=== PATIENT | male | born 1960 | race Caucasian/White ===

== ENCOUNTER 2017-03-16 10:14 | Emergency (ER) | payer SELFPAY ==
--- NOTE | 2017-03-16 11:00 | ER Document Report ---
ED Medical Screen (RME) - General Chief Complaint: Chest Pain Stated Complaint: CHEST PAIN Time Seen by Provider: 03/16/17 10:52 Mode of Arrival: Ambulatory Information source: Patient TRAVEL OUTSIDE OF THE [place] IN LAST 30 DAYS: No - HPI Onset: This morning Onset/Duration: Gradual, Constant Quality of pain: Sharp Severity: Mild Associated Symptoms: Hurts to breath Exacerbated by: Denies Relieved by: Denies Notes: 03/16/17 10:57 56-year-old male with previous history of CAD status post stent placement years ago. Patient has had no recent cardiology follow-up. Patient presents with sharp reproducible left-sided chest pain approximately 3 AM this morning which is been constant. He reports painful depressed. No known fevers or chills. No nausea or sweats. Shortness of breath is described as painful deep breathing only. Patient is an active smoker. - Related Data Smoking: Cigarettes Allergies/Adverse Reactions: No Known Allergies Allergy (Verified 03/16/17 10:35) Past Medical History - General Information source: Patient, [facility] Records - Social History Cigarette use (# per day): Yes Frequency of alcohol use: Occasional Drug Abuse: None - Past Medical History Cardiac Medical History: Reports: Hx Coronary Artery Disease, Hx Heart Attack, Hx Hypercholesterolemia, Hx Hypertension Pulmonary Medical History: Reports: Hx Pneumonia Renal/ Medical History: Reports: Hx Kidney Stones - 1983. Denies: Hx Peritoneal Dialysis Psychiatric Medical History: Denies: Hx Depression Past Surgical History: Reports: Hx Cardiac Catheterization - stent x2, Hx Cardiac Surgery - pacemaker, Hx Coronary Stent, Hx Pacemaker - Immunizations Hx Diphtheria, Pertussis, Tetanus Vaccination: Yes Review of Systems - Review of Systems Cardiovascular: Chest pain -: Yes All other systems reviewed and negative Physical Exam - Vital signs Vitals: Temp Pulse Resp BP Pulse Ox 98.4 F 82 16 161/107 H 97 03/16/17 10:35 03/16/17 10:35 03/16/17 10:35 03/16/17 10:35 03/16/17 10:35 Interpretation: Normal - General General appearance: Appears well, Alert - HEENT Head: Normocephalic, Atraumatic Eyes: Normal Pupils: PERRL - Respiratory Respiratory status: No respiratory distress Chest status: Nontender, Pain with deep breathing Breath sounds: Normal Chest palpation: Normal - Cardiovascular Rhythm: Regular Heart sounds: Normal auscultation Murmur: No - Abdominal Inspection: Normal Distension: No distension Bowel sounds: Normal Tenderness: Nontender Organomegaly: No organomegaly - Extremities General upper extremity: Normal inspection, Nontender, Normal color, Normal ROM , Normal temperature General lower extremity: Normal inspection, Nontender, Normal color, Normal ROM , Normal temperature, Normal weight bearing. No: Diana's sign - Neurological Neuro grossly intact: Yes Cognition: Normal Orientation: AAOx4 [place] Coma Scale Eye Opening: Spontaneous [place] Coma Scale Verbal: Oriented [place] Coma Scale Motor: Obeys Commands [place] Coma Scale Total: 15 Speech: Normal Motor strength normal: LUE, RUE, LLE, RLE Sensory: Normal - Skin Skin Temperature: Warm Skin Moisture: Dry Skin Color: Normal Course - Re-evaluation Re-evalutation: 03/16/17 10:59 Patient will require further evaluation management in the back treatment area. Disposition will be per ED provider at that location. - Vital Signs Vital signs: Temp Pulse Resp BP Pulse Ox 98.4 F 82 16 161/107 H 97 03/16/17 10:35 03/16/17 10:35 03/16/17 10:35 03/16/17 10:35 03/16/17 10:35 - EKG Interpretation by Ia EKG shows normal: Sinus rhythm Rate: Normal Rhythm: NSR [place]/QRS: LBBB When compared to previous EKG there are: No significant change Additional EKG results interpreted by ne: 03/16/17 10:59 EKG not significantly changed from previous April 2016
[2017-03-16 11:32] LABS: ABSOLUTE LYMPHOCYTES (AUTO) 1.6 10^3/uL (0.5-4.7); ABSOLUTE MONOCYTES (AUTO) 0.5 10^3/uL (0.1-1.4); ABSOLUTE NEUT (AUTO) 6.3 10^3/uL (1.7-8.2); BASOPHILS % (AUTO) 0.3 % (0-2); HEMATOCRIT 50.5 % (37.9-51.0); HEMOGLOBIN 16.7 g/dL (13.5-17.0); HGB HCT DIFFERENCE -0.4; LYMPHOCYTES % (AUTO) 19.1 % (13-45); MEAN CORPUSCULAR HEMOGLOBIN 32.7 pg (27.0-33.4); MEAN CORPUSCULAR HGB CONC 33.1 g/dL (32.0-36.0); MEAN CORPUSCULAR VOLUME 99 fl (80-97); MONOCYTES % (AUTO) 5.8 % (3-13); RED BLOOD COUNT 5.11 10^6/uL (4.35-5.55); RED CELL DISTRIBUTION WIDTH 13.2 % (11.5-14.0); SEGMENTED NEUTROPHILS % (AUTO) 74.8 % (42-78); WHITE BLOOD COUNT 8.5 10^3/uL (4.0-10.5)
--- NOTE | 2017-03-16 11:37 | RADIOLOGY REPORT (SQ) ---
EXAM DESCRIPTION: CHEST SINGLE VIEW COMPLETED DATE/TIME: 03/16/2017 11:24 am REASON FOR STUDY: cp COMPARISON: April 2016 EXAM PARAMETERS: NUMBER OF VIEWS: One view. TECHNIQUE: Single frontal radiographic view of the chest acquired. RADIATION DOSE: NA LIMITATIONS: None. FINDINGS: LUNGS AND PLEURA: No opacities, masses or pneumothorax. No pleural effusion. MEDIASTINUM AND HILAR STRUCTURES: No masses. Contour normal. HEART AND VASCULAR STRUCTURES: Heart normal in size. Normal vasculature. BONES: No acute findings. HARDWARE: Dual chamber transvenous pacemaker is unchanged in position. OTHER: No other significant finding. IMPRESSION: NO ACUTE RADIOGRAPHIC FINDING IN THE CHEST. TECHNICAL DOCUMENTATION: JOB ID: [id number]
[2017-03-16 11:42] LABS: ALANINE AMINOTRANSFERASE 28 U/L (21-72); ALBUMIN 4.4 g/dL (3.5-5.0); ALKALINE PHOSPHATASE 61 U/L (38-126); ANION GAP 10 (5-19); ASPARTATE AMINO TRANSFERASE 63 U/L (17-59); BILIRUBIN,DIRECT 0.3 mg/dL (0.0-0.4); BILIRUBIN,TOTAL 1.1 mg/dL (0.2-1.3); BLOOD UREA NITROGEN 10 mg/dL (7-20); CALCIUM 9.7 mg/dL (8.4-10.2); CARBON DIOXIDE 25 mmol/L (22-30); CHLORIDE 104 mmol/L (98-107); CREATININE RESULT 0.71 mg/dL (0.52-1.25); GLUCOSE 111 mg/dL (75-110); POTASSIUM 4.2 mmol/L (3.6-5.0); SODIUM 138.9 mmol/L (137-145); TOTAL PROTEIN 7.3 g/dL (6.3-8.2)
[2017-03-16 11:43] LABS: LIPASE 143.7 U/L (23-300); MAGNESIUM 2.2 mg/dL (1.6-2.3)
[2017-03-16 11:44] LABS: ALCOHOL < 10 mg/dL (NONE DETECTED)
[2017-03-16] MEDS ORDERED: NITROGLYCERIN 2% OINTMENT 1 GM PACKET TP ONE (11:54)
[2017-03-16] MEDS ORDERED: ASPIRIN 325 MG TABLET PO ONE (11:56)
[2017-03-16] MEDS ORDERED: CLOPIDOGREL BISULFATE 75 MG TABLET PO ONE (11:57)
[2017-03-16] MEDS ORDERED: ENOXAPARIN SODIUM INJ 80 MG/0.8 ML DISP.SYRIN SUBCUT SCH (12:00)
[2017-03-16] MEDS ORDERED: NORMAL SALINE 1000 ML 1,000 ML IV ONE (12:01)
[2017-03-16] MEDS ORDERED: MORPHINE SULFATE 10 MG/ML INJ IV ONE ×2 (12:03→13:45)
[2017-03-16] MEDS ORDERED: ONDANSETRON HCL INJ/PF 4 MG/2 ML SDV IV ONE (12:03)
[2017-03-16 12:23] LABS: PARTIAL THROMBOPLASTIN TIME 27.4 SEC (23.5-35.8); PROTHROMBIN TIME 12.6 SEC (11.4-15.4)
[2017-03-16] MEDS ORDERED: METOPROLOL TARTRATE 25 MG TABLET PO ONE (12:52)
--- NOTE | 2017-03-16 13:09 | EKG REPORT ---
SEVERITY:- ABNORMAL ECG - SINUS RHYTHM LEFT BUNDLE BRANCH BLOCK : Confirmed by: Kumar Bunn MD 16-Mar-2017 13:08:21
[2017-03-16 13:19] LABS: AMORPHOUS SEDIMENT,URINE TRACE /HPF; APPEARANCE,URINE SLIGHTLY-CLOUDY; BILIRUBIN,URINE NEGATIVE (NEGATIVE); GLUCOSE, URINE NEGATIVE (NEGATIVE); KETONES,URINE NEGATIVE (NEGATIVE); LEUKOCYTE ESTERASE,URINE NEGATIVE (NEGATIVE); NITRITE,URINE NEGATIVE (NEGATIVE); PROTEIN,URINE NEGATIVE (NEGATIVE); URINE SPECIFIC GRAVITY 1.005; UROBILINOGEN,URINE NEGATIVE mg/dL (<2.0)
[2017-03-16 13:24] VITALS: BP 162/107
[2017-03-16] MEDS ORDERED: ONDANSETRON HCL INJ/PF 4 MG/2 ML SDV IV PRN (13:45)
[2017-03-16] MEDS ORDERED: MORPHINE SULFATE 10 MG/ML INJ IV PRN (13:45)
--- NOTE | 2017-03-16 14:06 | ER Document Report ---
ED General - General Chief Complaint: Chest Pain Stated Complaint: CHEST PAIN Time Seen by Provider: 03/16/17 10:52 Mode of Arrival: Ambulatory TRAVEL OUTSIDE OF THE [place] IN LAST 30 DAYS: No - HPI Patient complains to provider of: Chest pain Notes: Patient coming in for evaluation chest pain left sided states that sometimes going to his back states chest pain is sharp in nature ongoing since 3:00 in the morning. Patient states this is been associated with nausea vomiting. Patient has a history of MA 2 in the past with 2 stents placed in a pacemaker. Patient currently does not take any medication and noncompliant with medication regimen. Patient has a history of noncompliance. Patient states stress test here 2 years ago was negative. Patient states last intervention was performed in [place]. Denies any recent travel denies fever chills diarrhea. Denies any trauma to the chest. Patient upon my evaluation resting comfortably no signs of any obvious distress. - Related Data Allergies/Adverse Reactions: No Known Allergies Allergy (Verified 03/16/17 10:35) Past Medical History - General Information source: Patient, [facility] Records - Social History Smoking Status: Current Every Day Smoker Cigarette use (# per day): Yes Frequency of alcohol use: Occasional Drug Abuse: None Family History: Reviewed & Not Pertinent Patient has suicidal ideation: No Patient has homicidal ideation: No - Past Medical History Cardiac Medical History: Reports: Hx Coronary Artery Disease, Hx Heart Attack, Hx Hypercholesterolemia, Hx Hypertension Pulmonary Medical History: Reports: Hx Pneumonia Renal/ Medical History: Reports: Hx Kidney Stones - 1983. Denies: Hx Peritoneal Dialysis Psychiatric Medical History: Denies: Hx Depression Past Surgical History: Reports: Hx Cardiac Catheterization - stent x2, Hx Cardiac Surgery - pacemaker, Hx Coronary Stent, Hx Pacemaker - Immunizations Hx Diphtheria, Pertussis, Tetanus Vaccination: Yes Hx Pneumococcal Vaccination: 06/05/14 Review of Systems - Review of Systems Constitutional: No symptoms reported EENT: No symptoms reported Cardiovascular: Chest pain Respiratory: No symptoms reported Gastrointestinal: No symptoms reported Genitourinary: No symptoms reported Male Genitourinary: No symptoms reported Musculoskeletal: No symptoms reported Skin: No symptoms reported Hematologic/Lymphatic: No symptoms reported Neurological/Psychological: No symptoms reported Physical Exam - Vital signs Vitals: Temp Pulse Resp BP Pulse Ox 98.4 F 82 16 161/107 H 97 03/16/17 10:35 03/16/17 10:35 07/12/17 10:35 03/16/17 10:35 03/16/17 10:35 Interpretation: Normal - General General appearance: Appears well, Alert - HEENT Head: Normocephalic, Atraumatic Eyes: Normal Pupils: PERRL - Respiratory Respiratory status: No respiratory distress Chest status: Nontender Breath sounds: Normal Chest palpation: Normal - Cardiovascular Rhythm: Regular Heart sounds: Normal auscultation Murmur: No - Abdominal Inspection: Normal Distension: No distension Bowel sounds: Normal Tenderness: Nontender Organomegaly: No organomegaly - Back Back: Normal, Nontender - Extremities General upper extremity: Normal inspection, Nontender, Normal color, Normal ROM , Normal temperature General lower extremity: Normal inspection, Nontender, Normal color, Normal ROM , Normal temperature, Normal weight bearing. No: Diana's sign - Neurological Neuro grossly intact: Yes Cognition: Normal Orientation: AAOx4 [place] Coma Scale Eye Opening: Spontaneous [place] Coma Scale Verbal: Oriented [place] Coma Scale Motor: Obeys Commands [place] Coma Scale Total: 15 Speech: Normal Motor strength normal: LUE, RUE, LLE, RLE Sensory: Normal - Psychological Associated symptoms: Normal affect, Normal mood - Skin Skin Temperature: Warm Skin Moisture: Dry Skin Color: Normal Course - Re-evaluation Re-evalutation: 03/16/17 14:04 Patient EKG showed left bundle branch block no signs of thrombosis criteria. EKG similar to previous EKG in the past. No acute changes. Lab work shows elevation troponin 5.7. Patient was given Plavix upon initial evaluation patient states took full aspirin at home 325mg. Upon notification of elevated troponin patient was given a weight-based dose of Lovenox. Patient's chest pain did improve with nitro paste and morphine. Initially rated 5 out of 5 now currently is 2-3 out of 5. Discussion with hospitalist at [facility] Jovanna recommend transfer directly to the Rehabilitation Services Counselor. Patient was given a dose of oral beta-fabio 25 mg metoprolol. Otherwise made n.p.o. patient has IV fluids going at this time. Vital signs do remain stable. - Vital Signs Vital signs: Temp Pulse Resp BP Pulse Ox 98.4 F 82 12 162/107 H 93 03/16/17 10:35 03/16/17 10:35 03/16/17 13:01 03/16/17 13:00 03/16/17 13:01 - Laboratory Result Diagrams: 03/16/17 11:08 03/16/17 11:08 Laboratory results interpreted by me: 03/16/17 03/16/17 11:08 11:08 MCV 99 H Glucose 111 H AST 63 H Critical Care Note - Critical Care Note Total time excluding time spent on procedures (mins): 45 Comments: Multiple evaluations for N STEMI Discharge - Discharge Clinical Impression: Non-compliance, NSTEMI (non-ST elevated myocardial infarction)
[2017-03-16 15:02] LABS: URINE BARBITURATES SCREEN NEGATIVE; URINE METHADONE SCREEN NEGATIVE; URINE OPIATES LOW UNCONFIRMED POSITIVE; URINE PHENCYCLIDINE SCREEN NEGATIVE
== END 2017-03-16 14:17 | disposition short-term general hospital (02) ==
LOC: ER 10:14
DX: I21.4 Non-ST elevation (NSTEMI) myocardial infarction (principal); Z91.14 Patient's other noncompliance with medication regimen; R07.9 Chest pain, unspecified; I44.7 Left bundle-branch block, unspecified; I25.10 Atherosclerotic heart disease of native coronary artery without angina pectoris; I25.2 Old myocardial infarction; I10 Essential (primary) hypertension; F17.210 Nicotine dependence, cigarettes, uncomplicated; Z98.61 Coronary angioplasty status; Z95.0 Presence of cardiac pacemaker
CPT/HCPCS: 93005; 99291; 96372; 96374; 96375; 36415; 80307 ×2; 83690; 83735; 85025; 85610; 85730; 80053; 81001; 84484; 71010; 93010; J2270; J2405; J7030; J1650

== ENCOUNTER 2017-09-04 15:27 | Emergency (ER) | payer SELFPAY ==
[2017-09-04] MEDS ORDERED: IPRATROPIUM/ALBUTEROL 0.5-2.5 MG/3 ML AMPUL NEB ONE (16:32)
[2017-09-04] MEDS ORDERED: TRAMADOL HCL 50 MG TABLET PO ONE (16:32)
--- NOTE | 2017-09-04 16:32 | ER Document Report ---
ED Medical Screen (RME) - General Chief Complaint: Chest Pain > 30 Stated Complaint: CHEST PAIN Time Seen by Provider: 09/04/17 16:22 Notes: This 56-year-old male patient complains of chest pain since 2:00 this morning. Describes the chest pain is being from the left clavicular area going down through the chest and to the left anterior lateral and inferior posterior area. He reports taking several nitroglycerin. He had been drinking alcohol out in the [place] with friends. He also reports diarrhea for the past 1-2 weeks. There is a past history of coronary artery disease with stents. He lives in a block building behind someone's house, so he does have somewhere to stay. He reports smoking one half pack per day and occasional alcohol use. I have greeted and performed a rapid initial assessment of this patient. A comprehensive ED assessment and evaluation of the patient, analysis of test results and completion of the medical decision making process will be conducted by additional ED providers. TRAVEL OUTSIDE OF THE [place] IN LAST 30 DAYS: No - Related Data Allergies/Adverse Reactions: No Known Allergies Allergy (Verified 09/04/17 15:29) Past Medical History - Social History Frequency of alcohol use: 2-3 beers a day Drug Abuse: None - Past Medical History Cardiac Medical History: Reports: Hx Coronary Artery Disease, Hx Heart Attack, Hx Hypercholesterolemia, Hx Hypertension Pulmonary Medical History: Reports: Hx Pneumonia Renal/ Medical History: Reports: Hx Kidney Stones - 1983. Denies: Hx Peritoneal Dialysis Psychiatric Medical History: Denies: Hx Depression Past Surgical History: Reports: Hx Cardiac Catheterization - stent x2, Hx Cardiac Surgery - pacemaker, Hx Coronary Stent, Hx Pacemaker - Immunizations Hx Diphtheria, Pertussis, Tetanus Vaccination: Yes Physical Exam - Vital signs Vitals: Temp Pulse Resp BP Pulse Ox 98.1 F 95 19 121/88 H 96 09/04/17 16:01 09/04/17 16:01 09/04/17 16:01 09/04/17 16:01 09/04/17 16:01 Course - Vital Signs Vital signs: Temp Pulse Resp BP Pulse Ox 98.1 F 95 19 121/88 H 96 09/04/17 16:01 09/04/17 16:01 09/04/17 16:01 09/04/17 16:01 09/04/17 16:01
[2017-09-04 17:27] LABS: ALANINE AMINOTRANSFERASE 26 U/L (21-72); ALBUMIN 4.6 g/dL (3.5-5.0); ALKALINE PHOSPHATASE 77 U/L (38-126); ANION GAP 17 (5-19); ASPARTATE AMINO TRANSFERASE 33 U/L (17-59); BILIRUBIN,DIRECT 0.4 mg/dL (0.0-0.4); BILIRUBIN,TOTAL 0.6 mg/dL (0.2-1.3); BLOOD UREA NITROGEN 7 mg/dL (7-20); CALCIUM 9.5 mg/dL (8.4-10.2); CARBON DIOXIDE 20 mmol/L (22-30); CHLORIDE 111 mmol/L (98-107); CREATINE KINASE 109 U/L (55-170); GLUCOSE 92 mg/dL (75-110); LIPASE 359.9 U/L (23-300); POTASSIUM 4.4 mmol/L (3.6-5.0); SODIUM 148.2 mmol/L (137-145); TOTAL PROTEIN 7.3 g/dL (6.3-8.2)
[2017-09-04 17:36] LABS: ABSOLUTE BASOPHILS # (AUTO) 0.1 10^3/uL (0.0-0.2); ABSOLUTE LYMPHOCYTES (AUTO) 2.4 10^3/uL (0.5-4.7); ABSOLUTE MONOCYTES (AUTO) 0.4 10^3/uL (0.1-1.4); ABSOLUTE NEUT (AUTO) 2.3 10^3/uL (1.7-8.2); BASOPHILS % (AUTO) 1.3 % (0-2); EOSINOPHILS % (AUTO) 0.4 % (0-6); HEMATOCRIT 51.4 % (37.9-51.0); HEMOGLOBIN 17.7 g/dL (13.5-17.0); LYMPHOCYTES % (AUTO) 46.2 % (13-45); MEAN CORPUSCULAR HEMOGLOBIN 33.7 pg (27.0-33.4); MEAN CORPUSCULAR HGB CONC 34.5 g/dL (32.0-36.0); MEAN CORPUSCULAR VOLUME 98 fl (80-97); MONOCYTES % (AUTO) 8.4 % (3-13); PLATELET COUNT 168 10^3/uL (150-450); RED BLOOD COUNT 5.27 10^6/uL (4.35-5.55); RED CELL DISTRIBUTION WIDTH 14.1 % (11.5-14.0); SEGMENTED NEUTROPHILS % (AUTO) 43.7 % (42-78); TOTAL CELLS COUNTED % (AUTO) 100 %; WHITE BLOOD COUNT 5.2 10^3/uL (4.0-10.5)
[2017-09-04 17:37] LABS: ALCOHOL 314 mg/dL (NONE DETECTED)
--- NOTE | 2017-09-04 17:39 | RADIOLOGY REPORT (SQ) ---
EXAM DESCRIPTION: CHEST PA/LAT COMPLETED DATE/TIME: 09/04/2017 5:16 pm REASON FOR STUDY: Congested cough, chest pain COMPARISON: March 2017 EXAM PARAMETERS: NUMBER OF VIEWS: two views TECHNIQUE: Digital Frontal and Lateral radiographic views of the chest acquired. RADIATION DOSE: NA LIMITATIONS: none FINDINGS: LUNGS AND PLEURA: No opacities, masses or pneumothorax. No pleural effusion. MEDIASTINUM AND HILAR STRUCTURES: No masses or contour abnormalities. HEART AND VASCULAR STRUCTURES: Heart normal size. No evidence for failure. BONES: No acute findings. HARDWARE: Pool chamber transvenous pacemaker is unchanged in position OTHER: No other significant finding. IMPRESSION: NO SIGNIFICANT RADIOGRAPHIC FINDING IN THE CHEST. TECHNICAL DOCUMENTATION: JOB ID: [id number] [employer]- All Rights Reserved
[2017-09-04] MEDS ORDERED: MAG HYDROX/AL HYDROX/SIMETH SUSP 30 ML UDCUP PO ONE (19:05)
[2017-09-04] MEDS ORDERED: METOCLOPRAMIDE HCL ORAL SOLN 10 MG/10 ML UDCUP PO ONE (19:05)
[2017-09-04] MEDS ORDERED: LIDOCAINE 2% VISCOUS SOLN 20 ML UDCUP PO ONE (19:05)
[2017-09-04 19:44] LABS: APPEARANCE,URINE CLEAR; BILIRUBIN,URINE NEGATIVE (NEGATIVE); COLOR,URINE YELLOW; GLUCOSE, URINE NEGATIVE (NEGATIVE); KETONES,URINE NEGATIVE (NEGATIVE); LEUKOCYTE ESTERASE,URINE NEGATIVE (NEGATIVE); NITRITE,URINE NEGATIVE (NEGATIVE); PROTEIN,URINE NEGATIVE (NEGATIVE); URINE SPECIFIC GRAVITY 1.006; UROBILINOGEN,URINE NEGATIVE mg/dL (<2.0)
[2017-09-04 19:58] LABS: URINE AMPHETAMINES SCREEN NEGATIVE; URINE BARBITURATES SCREEN NEGATIVE; URINE BENZODIAZEPINES SCREEN NEGATIVE; URINE COCAINE SCREEN NEGATIVE; URINE MARIJUANA (THC) SCREEN NEGATIVE; URINE METHADONE SCREEN NEGATIVE; URINE PHENCYCLIDINE SCREEN NEGATIVE
[2017-09-04 20:02] VITALS: BP 121/80
--- NOTE | 2017-09-04 21:48 | ER Document Report ---
ED General - General Chief Complaint: Chest Pain > 30 Stated Complaint: CHEST PAIN Time Seen by Provider: 09/04/17 16:22 TRAVEL OUTSIDE OF THE [place] IN LAST 30 DAYS: No - HPI Patient complains to provider of: Chest pain Notes: Patient coming in complaining of chest pain sharp stabbing central chest reproduced with movement ongoing since 2 AM. Patient has a history of CAD with recent stent placement in March. Patient states he has been drinking a day only 1 or 2 beers. Patient denies any fevers chills nausea vomiting denies any trauma. Patient denies any relief of the pain with his nitro. Upon my evaluation patient smells of alcohol and is belligerent requesting more medication for pain. - Related Data Allergies/Adverse Reactions: No Known Allergies Allergy (Verified 09/04/17 15:29) Past Medical History - Social History Smoking Status: Current Every Day Smoker Frequency of alcohol use: 2-3 beers a day Drug Abuse: None Family History: Reviewed & Not Pertinent Patient has suicidal ideation: No Patient has homicidal ideation: No - Past Medical History Cardiac Medical History: Reports: Hx Coronary Artery Disease, Hx Heart Attack, Hx Hypercholesterolemia, Hx Hypertension Pulmonary Medical History: Reports: Hx Pneumonia Renal/ Medical History: Reports: Hx Kidney Stones - 1983. Denies: Hx Peritoneal Dialysis Psychiatric Medical History: Denies: Hx Depression Past Surgical History: Reports: Hx Cardiac Catheterization - stent x2, Hx Cardiac Surgery - pacemaker, Hx Coronary Stent, Hx Pacemaker - Immunizations Hx Diphtheria, Pertussis, Tetanus Vaccination: Yes Hx Pneumococcal Vaccination: 06/05/14 Review of Systems - Review of Systems Constitutional: No symptoms reported EENT: No symptoms reported Cardiovascular: Chest pain Respiratory: No symptoms reported Gastrointestinal: No symptoms reported Genitourinary: No symptoms reported Male Genitourinary: No symptoms reported Musculoskeletal: No symptoms reported Skin: No symptoms reported Hematologic/Lymphatic: No symptoms reported Neurological/Psychological: No symptoms reported -: Yes All other systems reviewed and negative Physical Exam - Vital signs Vitals: Temp Pulse Resp BP Pulse Ox 98.1 F 95 19 121/88 H 96 09/04/17 16:01 09/04/17 16:01 09/04/17 16:01 09/04/17 16:01 09/04/17 16:01 Interpretation: Normal - General General appearance: Appears well, Alert - HEENT Head: Normocephalic, Atraumatic Eyes: Normal Pupils: PERRL - Respiratory Respiratory status: No respiratory distress Chest status: Tender - Tenderness palpation of the center of the chest. Reproduces patient's pain. Patient's pain also reproduced when patient is asked to sit up Breath sounds: Normal Chest palpation: Normal - Cardiovascular Rhythm: Regular Heart sounds: Normal auscultation Murmur: No - Abdominal Inspection: Normal Distension: No distension Bowel sounds: Normal Tenderness: Nontender Organomegaly: No organomegaly - Back Back: Normal, Nontender - Extremities General upper extremity: Normal inspection, Nontender, Normal color, Normal ROM , Normal temperature General lower extremity: Normal inspection, Nontender, Normal color, Normal ROM , Normal temperature, Normal weight bearing. No: Diana's sign - Neurological Neuro grossly intact: Yes Cognition: Normal Orientation: AAOx4 [place] Coma Scale Eye Opening: Spontaneous [place] Coma Scale Verbal: Oriented [place] Coma Scale Motor: Obeys Commands [place] Coma Scale Total: 15 Speech: Normal Motor strength normal: LUE, RUE, LLE, RLE Sensory: Normal - Psychological Associated symptoms: Normal affect, Normal mood - Skin Skin Temperature: Warm Skin Moisture: Dry Skin Color: Normal Course - Re-evaluation Re-evalutation: 09/05/17 01:19 Laboratory studies showed acute alcohol intoxication with negative troponin. EKG shows left bundle branch block. No changes in EKG from previous. Patient was observed here for quite some time. . Observation patient sleeping resting easily arousable pain-free at this time. Will discharge patient home patient was encouraged to taper his alcohol ingestion. - Vital Signs Vital signs: Temp Pulse Resp BP Pulse Ox 98.1 F 95 18 121/80 94 09/04/17 16:01 09/04/17 16:01 09/04/17 20:01 09/04/17 20:01 09/04/17 20:01 - Laboratory Result Diagrams: 09/04/17 16:50 09/04/17 16:50 Laboratory results interpreted by me: 09/04/17 09/04/17 09/04/17 16:50 16:50 19:25 Hgb 17.7 H Hct 51.4 H MCV 98 H MCH 33.7 H RDW 14.1 H Lymphocytes % 46.2 H Sodium 148.2 H Chloride 111 H Carbon Dioxide 20 L Lipase 359.9 H Urine Blood SMALL H Serum Alcohol 314 H* Discharge - Discharge Clinical Impression: Chest pain of uncertain etiology Acute alcohol intoxication Qualifiers: Complication of substance-induced condition: uncomplicated Qualified Code(s): F10.929 - Alcohol use, unspecified with intoxication, unspecified Condition: Good Disposition: HOME, SELF-CARE Instructions: Acute Alcohol Intoxication ([facility]), Chest Wall Pain ([facility]), Chest Pain of Unclear Cause ([facility]) Additional Instructions: Your cardiac studies EKG did not did not show any acute changes. I recommend she follow-up with your primary care physician. Take medications as prescribed. Highly recommend to gradually wean your alcohol consumption. Prescriptions: Omeprazole 20 mg PO DAILY #30 capsule.
--- NOTE | 2017-09-06 09:31 | EKG REPORT ---
SEVERITY:- ABNORMAL ECG - SINUS RHYTHM LEFT BUNDLE BRANCH BLOCK : Confirmed by: Heber Isabel 06-Sep-2017 09:29:15
== END 2017-09-04 21:55 | disposition home or self-care (01) ==
LOC: ER 15:27
DX: R07.9 Chest pain, unspecified (principal); I25.10 Atherosclerotic heart disease of native coronary artery without angina pectoris; F17.200 Nicotine dependence, unspecified, uncomplicated; F10.929 Alcohol use, unspecified with intoxication, unspecified
CPT/HCPCS: 93005; 94640; 99285; 36415; 80307 ×2; 82550; 83690; 85025; 80053; 81001; 84484; 71020; 93010; J3490; J7620

== ENCOUNTER 2017-09-10 11:08 | Emergency (ER) | payer SELFPAY ==
[2017-09-10] MEDS ORDERED: ASPIRIN 81 MG TABLET, CHEWABLE PO ONE (11:14)
--- NOTE | 2017-09-10 11:39 | EKG REPORT ---
SEVERITY:- ABNORMAL ECG - SINUS RHYTHM LEFT BUNDLE BRANCH BLOCK : Confirmed by: Heber Isabel 10-Sep-2017 11:39:02
[2017-09-10 11:57] LABS: ABSOLUTE LYMPHOCYTES (AUTO) 1.4 10^3/uL (0.5-4.7); ABSOLUTE MONOCYTES (AUTO) 0.4 10^3/uL (0.1-1.4); ABSOLUTE NEUT (AUTO) 2.8 10^3/uL (1.7-8.2); BASOPHILS % (AUTO) 0.4 % (0-2); EOSINOPHILS % (AUTO) 0.5 % (0-6); HEMATOCRIT 47.2 % (37.9-51.0); HEMOGLOBIN 16.3 g/dL (13.5-17.0); LYMPHOCYTES % (AUTO) 29.8 % (13-45); MEAN CORPUSCULAR HEMOGLOBIN 33.5 pg (27.0-33.4); MEAN CORPUSCULAR HGB CONC 34.5 g/dL (32.0-36.0); MEAN CORPUSCULAR VOLUME 97 fl (80-97); MONOCYTES % (AUTO) 9.6 % (3-13); PLATELET COUNT 155 10^3/uL (150-450); RED BLOOD COUNT 4.86 10^6/uL (4.35-5.55); RED CELL DISTRIBUTION WIDTH 13.7 % (11.5-14.0); SEGMENTED NEUTROPHILS % (AUTO) 59.7 % (42-78); TOTAL CELLS COUNTED % (AUTO) 100 %; WHITE BLOOD COUNT 4.6 10^3/uL (4.0-10.5)
--- NOTE | 2017-09-10 12:05 | RADIOLOGY REPORT (SQ) ---
EXAM DESCRIPTION: CHEST SINGLE VIEW COMPLETED DATE/TIME: 09/10/2017 11:58 am REASON FOR STUDY: chest pain COMPARISON: 09/04/2017 EXAM PARAMETERS: NUMBER OF VIEWS: One view. TECHNIQUE: Single frontal radiographic view of the chest acquired. RADIATION DOSE: NA LIMITATIONS: None. FINDINGS: LUNGS AND PLEURA: No new opacities, masses or pneumothorax. No pleural effusion. MEDIASTINUM AND HILAR STRUCTURES: No masses. Contour normal. HEART AND VASCULAR STRUCTURES: Heart normal in size. Normal vasculature. BONES: No acute findings. HARDWARE: Stable. OTHER: No other significant finding. IMPRESSION: NO ACUTE RADIOGRAPHIC FINDING IN THE CHEST. NO SIGNIFICANT CHANGE FROM PRIOR STUDY. TECHNICAL DOCUMENTATION: JOB ID: [id number] [employer]- All Rights Reserved
[2017-09-10 12:15] LABS: ALANINE AMINOTRANSFERASE 22 U/L (21-72); ALBUMIN 3.7 g/dL (3.5-5.0); ALKALINE PHOSPHATASE 58 U/L (38-126); ANION GAP 9 (5-19); ASPARTATE AMINO TRANSFERASE 20 U/L (17-59); BILIRUBIN,DIRECT 0.1 mg/dL (0.0-0.4); BILIRUBIN,TOTAL 0.7 mg/dL (0.2-1.3); BLOOD UREA NITROGEN 10 mg/dL (7-20); CALCIUM 9.3 mg/dL (8.4-10.2); CARBON DIOXIDE 24 mmol/L (22-30); CHLORIDE 106 mmol/L (98-107); CREATINE KINASE 53 U/L (55-170); GLUCOSE 105 mg/dL (75-110); POTASSIUM 4.3 mmol/L (3.6-5.0); SODIUM 138.5 mmol/L (137-145); TOTAL PROTEIN 6.1 g/dL (6.3-8.2)
[2017-09-10 12:28] LABS: TROPONIN I < 0.012 ng/mL
[2017-09-10] MEDS ORDERED: IBUPROFEN 800 MG TABLET PO ONE (13:17)
--- NOTE | 2017-09-10 13:51 | ER Document Report ---
ED General - General Chief Complaint: Chest Pain Stated Complaint: CHEST PAIN Time Seen by Provider: 09/10/17 11:14 Mode of Arrival: Medic Information source: Patient, Law Enforcement Notes: 56-year-old male who had a stent placed in March presents with complaints of chest pain. Patient notes is a constant chest pressure sensation in the left chest since yesterday. Patient denies any shortness of breath difficulty breathing patient states he has not been taking any of his medications appropriately TRAVEL OUTSIDE OF THE [place] IN LAST 30 DAYS: No - HPI Onset: Yesterday Onset/Duration: Persistent Quality of pain: Pressure Severity: Mild Pain Level: 1 Associated symptoms: Chest pain Exacerbated by: Denies Relieved by: Denies Similar symptoms previously: Yes Recently seen / treated by doctor: Yes - Patient was seen here 1 week prior with similar chest pain - Related Data Allergies/Adverse Reactions: No Known Allergies Allergy (Verified 09/10/17 11:45) Past Medical History - Social History Smoking Status: Current Every Day Smoker Cigarette use (# per day): Yes Chew tobacco use (# tins/day): No Smoking Education Provided: No Frequency of alcohol use: Occasional Drug Abuse: None Family History: Reviewed & Not Pertinent Patient has suicidal ideation: No Patient has homicidal ideation: No - Past Medical History Cardiac Medical History: Reports: Hx Coronary Artery Disease, Hx Heart Attack, Hx Hypercholesterolemia, Hx Hypertension Pulmonary Medical History: Reports: Hx Pneumonia Renal/ Medical History: Reports: Hx Kidney Stones - 1983. Denies: Hx Peritoneal Dialysis Psychiatric Medical History: Denies: Hx Depression Past Surgical History: Reports: Hx Cardiac Catheterization - stent x2, Hx Cardiac Surgery - pacemaker, Hx Coronary Stent, Hx Pacemaker - Immunizations Hx Diphtheria, Pertussis, Tetanus Vaccination: Yes Hx Pneumococcal Vaccination: 06/05/14 Review of Systems - Review of Systems Notes: REVIEW OF SYSTEMS: CONSTITUTIONAL : Denies fever, chills, or sweats. Denies recent illness. EENT: Denies eye, ear, throat, or mouth pain or symptoms. Denies nasal or sinus congestion or discharge. Denies throat, tongue, or mouth swelling or difficulty swallowing. CARDIOVASCULAR: Admits to chest pain RESPIRATORY: Denies cough, cold, or chest congestion. Denies shortness of breath, difficulty breathing, or wheezing. GASTROINTESTINAL: Denies abdominal pain or distention. Denies nausea, vomiting , or diarrhea. Denies blood in vomitus, stools, or per rectum. Denies black, tarry stools. Denies constipation. GENITOURINARY: Denies difficulty urinating, painful urination, burning, frequency, blood in urine, or discharge. MUSCULOSKELETAL: Denies back or neck pain or stiffness. Denies joint pain or swelling. SKIN: Denies rash, lesions or sores. HEMATOLOGIC : Denies easy bruising or bleeding. LYMPHATIC: Denies swollen, enlarged glands. NEUROLOGICAL: Denies confusion or altered mental status. Denies passing out or loss of consciousness. Denies dizziness or lightheadedness. Denies headache. Denies weakness or paralysis or loss of use of either side. Denies problems with gait or speech. Denies sensory loss, numbness, or tingling. Denies seizures. PSYCHIATRIC: Denies anxiety or stress. Denies depression, suicidal ideation, or homicidal ideation. ALL OTHER SYSTEMS REVIEWED AND NEGATIVE. Dictation was performed using [employer] voice recognition software PHYSICAL EXAMINATION: GENERAL: Well-appearing, well-nourished and in no acute distress. HEAD: Atraumatic, normocephalic. EYES: Pupils equal round and reactive to light, extraocular movements intact, sclera anicteric, conjunctiva are normal. ENT: Nares patent, oropharynx clear without exudates. Moist mucous membranes. NECK: Normal range of motion, supple without lymphadenopathy LUNGS: Breath sounds clear to auscultation bilaterally and equal. No wheezes rales or rhonchi. HEART: Regular rate and rhythm without murmurs ABDOMEN: Soft, nontender, nondistended abdomen. No guarding, no rebound. No masses appreciated. Musculoskeletal: Normal range of motion, no pitting or edema. No cyanosis. NEUROLOGICAL: Cranial nerves grossly intact. Normal speech, normal gait. Normal sensory, motor exams PSYCH: Normal mood, normal affect. SKIN: Warm, Dry, normal turgor, no rashes or lesions noted. Physical Exam - Vital signs Vitals: Pulse Ox 94 09/10/17 11:08 Course - Re-evaluation Re-evalutation: 09/10/17 13:48 Patients cardiac enzyme is negative, his presentation is quite benign but he has not been taking his medications as prescribed which I explained to him can lead to cardiac . Patient does not even know what medications he is on 09/10/17 13:51 Donald Mora has been paged so I may speak withthe ciaio counter molder 09/10/17 14:08 Dr Diaz noted single vessel disease , pt was discharged done effiant 10 daily simvastatin 40 daily aspirin 81 mg daily lisinopril 2.5 daily metoprolol 25 daily 09/10/17 16:41 I refilled the patient's medications, given that the cath report noted is a single vessel with a ciaio counter molder and I believe patient is stable for discharge , I will discharge with understand that the patient must take his medications which she has not been doing. Not taking his medications put him at extremely high risk for life-threatening issues After performing a Medical Screening Examination, I estimate there is LOW risk for RUPTURED ESOPHAGUS, PNEUMOTHORAX, PULMONARY EMBOLISM, ACUTE CORONARY SYNDROME, OR THORACIC AORTIC DISSECTION, thus I consider the discharge disposition reasonable. I have reevaluated this patient multiple times and no significant life threatening changes are noted. The patient and I have discussed the diagnosis and risks, and we agree with discharging home with close follow-up. We also discussed returning to the Emergency Department immediately if new or worsening symptoms occur. We have discussed the symptoms which are most concerning (e.g., bloody sputum, worsening pain or shortness of breath) that necessitate immediate return. - Vital Signs Vital signs: Temp Pulse Resp BP Pulse Ox 98.7 F 16 134/91 H 95 09/10/17 11:18 09/10/17 14:01 09/10/17 14:01 09/10/17 14:01 - Laboratory Result Diagrams: 09/10/17 11:34 09/10/17 11:34 Laboratory results interpreted by me: 09/10/17 09/10/17 11:34 11:34 MCH 33.5 H Creatine Kinase 53 L Total Protein 6.1 L - Diagnostic Test Radiology reviewed: Image reviewed, Reports reviewed - EKG Interpretation by Al EKG shows normal: Sinus rhythm, Felda, Intervals, QRS Complexes Felda/QRS: LBBB Discharge - Discharge Clinical Impression: Noncompliance with medication regimen Chest pain Qualifiers: Chest pain type: unspecified Qualified Code(s): R07.9 - Chest pain, unspecified CAD (coronary artery disease) Qualifiers: Coronary Disease-Associated Artery/Lesion type: [place] artery [place] vs. transplanted heart: [place] heart Associated angina: without angina Qualified Code(s): I25.10 - Atherosclerotic heart disease of [place] coronary artery without angina pectoris Condition: Stable Disposition: HOME, SELF-CARE Instructions: Chest Pain of Unclear Cause ([facility]) Additional Instructions: You must take your medications as prescribed, return immediately if there are any other concerns Prescriptions: Aspirin [Aspirin 81 mg Chewable Tablet] 81 mg PO DAILY #30 tab Lisinopril [Prinivil 2.5 mg Tablet] 2.5 mg PO DAILY #30 tablet Metoprolol Tartrate [Lopressor 25 mg Tablet] 25 mg PO DAILY #30 tab Prasugrel HCl [Effient 10 mg Tablet] 10 mg PO DAILY #30 tablet Simvastatin 40 mg PO DAILY #30 tablet
[2017-09-10 14:42] VITALS: BP 134/91
== END 2017-09-10 14:50 | disposition home or self-care (01) ==
LOC: ER 11:08
DX: R07.89 Other chest pain (principal); I25.10 Atherosclerotic heart disease of native coronary artery without angina pectoris; I10 Essential (primary) hypertension; Z95.0 Presence of cardiac pacemaker; T45.526A Underdosing of antithrombotic drugs, initial encounter; T46.6X6A Underdosing of antihyperlipidemic and antiarteriosclerotic drugs, initial encounter; T39.016A Underdosing of aspirin, initial encounter; T46.4X6A Underdosing of angiotensin-converting-enzyme inhibitors, initial encounter; T44.7X6A Underdosing of beta-adrenoreceptor antagonists, initial encounter; Z91.128 Patient's intentional underdosing of medication regimen for other reason; Z91.14 Patient's other noncompliance with medication regimen; Z95.5 Presence of coronary angioplasty implant and graft; I25.2 Old myocardial infarction
CPT/HCPCS: 36415; 71045; 80053; 82550; 82553; 84484; 85025; 93005; 93010; 99285

== ENCOUNTER 2018-12-27 12:28 | Observation (INO) | payer MEDICAID ==
[2018-12-27 12:59] LABS: ABSOLUTE LYMPHOCYTES (AUTO) 1.8 10^3/uL (0.5-4.7); ABSOLUTE MONOCYTES (AUTO) 0.4 10^3/uL (0.1-1.4); ABSOLUTE NEUT (AUTO) 3.7 10^3/uL (1.7-8.2); BASOPHILS % (AUTO) 0.5 % (0-2); EOSINOPHILS % (AUTO) 0.8 % (0-6); HEMATOCRIT 45.5 % (37.9-51.0); HEMOGLOBIN 15.8 g/dL (13.5-17.0); LYMPHOCYTES % (AUTO) 30.3 % (13-45); MEAN CORPUSCULAR HEMOGLOBIN 32.9 pg (27.0-33.4); MEAN CORPUSCULAR HGB CONC 34.7 g/dL (32.0-36.0); MEAN CORPUSCULAR VOLUME 95 fl (80-97); PLATELET COUNT 202 10^3/uL (150-450); RED CELL DISTRIBUTION WIDTH 13.3 % (11.5-14.0); SEGMENTED NEUTROPHILS % (AUTO) 61.4 % (42-78); TOTAL CELLS COUNTED % (AUTO) 100 %
--- NOTE | 2018-12-27 13:25 | RADIOLOGY REPORT (SQ) ---
EXAM DESCRIPTION: CHEST SINGLE VIEW COMPLETED DATE/TIME: 12/27/2018 1:01 pm REASON FOR STUDY: BED 9 CP COMPARISON: None. NUMBER OF VIEWS: One view. TECHNIQUE: Single frontal radiographic view of the chest acquired. LIMITATIONS: None. FINDINGS: LUNGS AND PLEURA: No opacities, masses or pneumothorax. No pleural effusion. MEDIASTINUM AND HILAR STRUCTURES: No masses. No contour abnormality. HEART AND VASCULAR STRUCTURES: Heart size normal. Vascularity normal. HARDWARE: Hardware/support devices in their appropriate and expected location. BONES: No acute findings. OTHER: No other significant finding. IMPRESSION: NO ACUTE RADIOGRAPHIC FINDING IN THE CHEST. HARDWARE/SUPPORT DEVICE(S) IN APPROPRIATE AND EXPECTED LOCATION. TECHNICAL DOCUMENTATION: JOB ID: [id number] [employer]- All Rights Reserved Reading location - IP/workstation name: [email or web address]
[2018-12-27 13:28] LABS: ALANINE AMINOTRANSFERASE 27 U/L (21-72); ALBUMIN 3.5 g/dL (3.5-5.0); ALKALINE PHOSPHATASE 43 U/L (38-126); ANION GAP 5 (5-19); ASPARTATE AMINO TRANSFERASE 21 U/L (17-59); BILIRUBIN,DIRECT 0.2 mg/dL (0.0-0.4); BILIRUBIN,TOTAL 0.6 mg/dL (0.2-1.3); BLOOD UREA NITROGEN 15 mg/dL (7-20); CALCIUM 9.1 mg/dL (8.4-10.2); CARBON DIOXIDE 23 mmol/L (22-30); CHLORIDE 111 mmol/L (98-107); CREATINE KINASE 73 U/L (55-170); GLUCOSE 85 mg/dL (75-110); SODIUM 139.2 mmol/L (137-145); TOTAL PROTEIN 6.1 g/dL (6.3-8.2)
[2018-12-27 13:31] LABS: CREATINE KINASE MB 0.36 ng/mL (<4.55)
[2018-12-27 13:41] LABS: TROPONIN I < 0.012 ng/mL
--- NOTE | 2018-12-27 14:32 | ER Document Report ---
ED Cardiac - General Chief Complaint: Chest Pain Stated Complaint: CHEST PAIN Time Seen by Provider: 12/27/18 13:35 Information source: Patient Notes: Patient is a 58-year-old male with past medical history as recorded including 4 stents with the last placed in May at [facility] who is noncompliant with his Plavix who presents today with a 1 to 2 days of some right-sided nonradiating chest pain. He states he had an unwitnessed syncopal episode last evening. Patient states yesterday he had some mild shortness of breath but has a history of COPD. He denies any runny nose, congestion, cough, calf pain or leg swelling, recent trips or travel. He went to his primary care physician today who sent the patient here for further evaluation and treatment. Patient does have a pacemaker at baseline. Patient denies any chest pain at this time. He was provided aspirin by EMS. TRAVEL OUTSIDE OF THE [place] IN LAST 30 DAYS: No - Related Data Allergies/Adverse Reactions: No Known Allergies Allergy (Verified 09/10/17 11:45) Past Medical History - Social History Smoking Status: Current Every Day Smoker Family History: Reviewed & Not Pertinent Patient has suicidal ideation: No Patient has homicidal ideation: No - Past Medical History Cardiac Medical History: Reports: Hx Coronary Artery Disease, Hx Heart Attack, Hx Hypercholesterolemia, Hx Hypertension Pulmonary Medical History: Reports: Hx COPD, Hx Pneumonia Renal/ Medical History: Reports: Hx Kidney Stones - 1983. Denies: Hx Peritoneal Dialysis Psychiatric Medical History: Denies: Hx Depression Past Surgical History: Reports: Hx Cardiac Catheterization - stent x2, Hx Cardiac Surgery - pacemaker, Hx Coronary Stent, Hx Pacemaker - Immunizations Hx Diphtheria, Pertussis, Tetanus Vaccination: Yes Hx Pneumococcal Vaccination: 06/05/14 Review of Systems - Review of Systems Constitutional: denies: Fever EENT: denies: Eye discharge, Nose discharge Cardiovascular: Syncope. denies: Palpitations Respiratory: Short of breath. denies: Hurts to breathe, Hemoptysis Gastrointestinal: denies: Vomiting Genitourinary: denies: Dysuria Musculoskeletal: denies: Leg swelling Skin: Other - no hives. denies: Rash Neurological/Psychological: Other - no slurred speech -: Yes All other systems reviewed and negative Physical Exam - Vital signs Vitals: Resp Pulse Ox 21 H 94 12/27/18 12:36 12/27/18 12:36 Notes: Reviewed vital signs and nursing note as charted by RN. CONSTITUTIONAL: Alert and oriented and responds appropriately to questions. Well-appearing; well-nourished HEAD: Normocephalic; atraumatic CARD: Regular rate and rhythm; no murmurs; symmetric distal pulses RESP: Normal chest excursion without splinting or tachypnea; pacemaker palpated in the left lateral chest wall; breath sounds clear and equal bilaterally; no wheezes, no rhonchi, no rales ABD/GI: Normal bowel sounds; non-distended; soft, non-tender; no palpable organomegaly or masses BACK: The back appears normal and is non-tender to palpation EXT: Normal ROM in all joints; non-tender to palpation; no edema SKIN: No acute lesions noted NEURO: CN 2-12 intact; 5/5 bilateral upper and lower extremity strength with sensation intact to light touch PSYCH: The patient's mood and manner are appropriate. Grooming and personal hygiene are appropriate. Course - Re-evaluation Re-evalutation: Given the history and physical examination we will order a cardiac panel, x-ray of the chest, and place the patient on the monitor. Given the syncopal episode I will obtain a CTA of the chest. EKG showed heart rate of 72, AV dual paced rhythm. No obvious concordance present. 12/27/18 14:31 Labs as recorded. Imaging as recorded thus far. Patient is currently pain- free. Vital signs are stable. 12/27/18 16:08 Repeat EKG as recorded. Heart rate 76, AV dual pacer with no obvious acute changes. Second troponin as recorded. CTA reading as recorded. 12/27/18 16:36 Repeat troponin as recorded. CT of the chest as recorded. Patient will be admitted to the hospitalist service for further evaluation and possibly provocative testing. - Vital Signs Vital signs: Temp Pulse Resp BP Pulse Ox 18 134/96 H 96 12/27/18 16:01 12/27/18 16:01 12/27/18 16:01 - Laboratory Result Diagrams: 12/27/18 12:44 12/27/18 12:44 Laboratory results interpreted by me: 12/27/18 12:44 Chloride 111 H Total Protein 6.1 L Discharge - Discharge Clinical Impression: Syncope and collapse Chest pain Qualifiers: Chest pain type: unspecified Qualified Code(s): R07.9 - Chest pain, unspecified Condition: Fair Disposition: ADMITTED OBSERVATION Admitting Provider: Yasmin (Hospitalist) Unit Admitted: Telemetry
[2018-12-27] MEDS ORDERED: ACETAMINOPHEN 325 MG TABLET PO ONE (15:39)
[2018-12-27] MEDS ORDERED: NITROGLYCERIN 2% OINTMENT 1 GM PACKET TP ONE (15:47)
[2018-12-27] MEDS: NITROGLYCERIN 0.4 MG/TAB 25 TAB/BOTTLE SL PRN ×2 (16:02→16:19)
--- NOTE | 2018-12-27 16:18 | RADIOLOGY REPORT (SQ) ---
EXAM DESCRIPTION: CTA CHEST COMPLETED DATE/TIME: 12/27/2018 3:13 pm REASON FOR STUDY: 9; CP/syncope COMPARISON: CT angio chest 07/10/2016, 11/10/2014, 04/14/2010 TECHNIQUE: CT scan of the chest performed using helical scanning technique with dynamic intravenous contrast injection. Images reviewed with lung, soft tissue and bone windows. Reconstructed coronal and sagittal MPR images reviewed. Additional 3 dimensional post-processing performed to develop Maximal Intensity Projection images (CA P). All images stored on PACS. All CT scanners at this facility use dose modulation, iterative reconstruction, and/or weight based d osing when appropriate to reduce radiation dose to as low as reasonably achievable (ALARA). [facility]: Dose Right [facility]: CareDose [facility]: Dose Right [facility]: Teradose 4D [facility]: Flagr CONTRAST TYPE AND DOSE: contrast/concentration: Isovue 350.00 mg/ml; Total Contrast Delivered: 74.0 ml; Total Saline Delivered: 90.0 ml Contrast bolus optimized for the pulmonary arteries. Not diagnostic for the aorta. RENAL FUNCTION: Creatinine 0.6 RADIATION DOSE: CT Rad equipment meets quality standard of care and radiation dose reduction techniq ues were employed. CTDIvol: 19.8 - 22.0 mGy. DLP: 902 mGy-cm. . LIMITATIONS: None. FINDINGS: LUNGS AND PLEURA: No acute infiltrates. No pleural effusion. No pneumothorax. In the right lateral lung base, an 8 mm nodule is present which is larger than on previous exams dati ng back to 2009. Continued follow-up as per Fleischner criteria with non contrasted CT is recommende d. AORTA AND GREAT VESSELS: No aneurysm. Contrast bolus not optimized for the aorta. HEART: No pericardial effusion. Significant coronary artery calcifications are present PULMONARY ARTERIES: No emboli visualized in the main pulmonary arteries or the segmental branches. HILAR AND MEDIASTINAL STRUCTURES: No identified masses or abnormal nodes. HARDWARE: None in the chest. UPPER ABDOMEN: No significant findings. Limited exam. THYROID AND OTHER SOFT TISSUES: No masses. No adenopathy. BONES: No acute or significant finding. 3D MIPS: Confirm above findings. OTHER: No other significant finding. IMPRESSION: No CT angio evidence of acute pulmonary emboli. 8 mm nodule in the right lateral lung base, larger than on previous studies dating back to 2009. Con tinued periodic CT surveillance is recommended COMMENT: FLEISCHNER CRITERIA FOR FOLLOW-UP OF PULMONARY NODULES Incidentally detected new nodules in persons 35 or older. HIGH RISK: History of smoking or other known risk factors. 6-8mm single solid nodule: LOW RISK: CT 6-12 mo; then consider CT 18-24 mo. HIGH RISK: CT 6-12 mo; th en CT 18-24 mo. Quality ID # [id number]: Final reports with documentation of one or more dose reduction techniques (e.g., Au tomated exposure control, adjustment of the mA and/or kV according to patient size, use of iterative reconstruction technique) TECHNICAL DOCUMENTATION: JOB ID: [id number] [employer]- All Rights Reserved Reading location - IP/workstation name: [email or web address]
[2018-12-27] MEDS ORDERED: MORPHINE SULFATE 10 MG/ML INJ IV ONE (16:46)
[2018-12-27] MEDS ORDERED: NITROGLYCERIN 0.4 MG/TAB 25 TAB/BOTTLE SL PRN (18:08)
--- NOTE | 2018-12-27 18:10 | PDOC H&P ---
History of Present Illness Admission Date/PCP: 12/27/18 17:12 Patient complains of: chest pain History of Present Illness: LORETTA OLMEDO is a 58 year old male of HTN, asthma, CAD, prior MN, multiple stenting x 4 (2006, 2008 and recent one n May 2018 for MN) who presented with chest pain. He says this started yesterdat around 1 pm while walking in the and, midsternal radiating to the right chest, stabbing in character, alternating between 3-6/10 in intensity. He says he was supposed to be on both aspirin and Effient but has not been compliant with Effient as he could not afford it. Past Medical History Cardiac Medical History: Reports: Coronary Artery Disease, Myocardial Infarction, Hyperlipidema, Hypertension Pulmonary Medical History: Reports: Chronic Obstructive Pulmonary Disease (C OPD), Pneumonia Psychiatric Medical History: Denies: Depression Past Surgical History Past Surgical History: Reports: Cardiac Catheterization - stent x2, Coronary Stent, Pacemaker Social History Smoking Status: Current Every Day Smoker Frequency of Alcohol Use: Occasional Hx Recreational Drug Use: No Hx Prescription Drug Abuse: No Family History Family History: Reviewed & Not Pertinent Parental Family History Reviewed: Yes - no premature CAD Children Family History Reviewed: No Sibling(s) Family History Reviewed.: No Medication/Allergy Home Medications: Albuterol Sulfate [Proair HFA Inhalation Aerosol 8.5 gm MDI] 2 puff IH Q4HP PRN 12/28/18 Aspirin [Adult Low Dose Aspirin EC] 81 mg PO DAILY 12/28/18 Atorvastatin Calcium [Lipitor 40 mg Tablet] 40 mg PO QHS 12/28/18 Lisinopril [Zestril] 2.5 mg PO DAILY 12/28/18 Metoprolol Tartrate [Lopressor 25 mg Tablet] 25 mg PO Q12 12/28/18 Nitroglycerin [Nitrostat 0.4 mg (1/150 Gr) Tabs 25/Bottle] 0.4 mg SL Q5MP PRN 12/28/18 Triamcinolone Acetonide [Aristocort 0.1% Cream] 1 applic TOP DAILY MDD *APPLY TO UPPER RIGHT ARM* 12/28/18 Allergies/Adverse Reactions: No Known Allergies Allergy (Verified 09/10/17 11:45) Review of Systems All systems: reviewed and no additional remarkable complaints except as stated - as mentioned in HPI Physical Exam Vital Signs: Temp Pulse Resp BP Pulse Ox 16 106/69 94 12/27/18 16:30 12/27/18 16:31 12/27/18 16:31 Intake & Output 12/26/18 12/27/18 12/28/18 06:59 06:59 06:59 Weight 211 lb 13.828 oz General appearance: PRESENT: no acute distress, well-developed, well-nourished Head exam: PRESENT: atraumatic, normocephalic Eye exam: PRESENT: conjunctiva pink, EOMI, PERRLA. ABSENT: scleral icterus Ear exam: PRESENT: normal external ear exam Mouth exam: PRESENT: moist, tongue midline Neck exam: ABSENT: carotid bruit, JVD, lymphadenopathy, thyromegaly Respiratory exam: PRESENT: clear to auscultation chente. ABSENT: rales, rhonchi, wheezes Cardiovascular exam: PRESENT: RRR. ABSENT: diastolic murmur, rubs, systolic murmur Pulses: PRESENT: normal dorsalis pedis pul GI/Abdominal exam: PRESENT: normal bowel sounds, soft. ABSENT: distended, guarding, mass, organolmegaly, rebound, tenderness Rectal exam: PRESENT: deferred Neurological exam: PRESENT: alert, awake, oriented to person, oriented to place, oriented to time, oriented to situation, CN II-XII grossly intact. ABSENT: m otor sensory deficit Results Laboratory Results: 12/27/18 12:44 12/27/18 12:44 12/27/18 12/27/18 12:44 12:44 WBC 6.0 RBC 4.80 Hgb 15.8 Hct 45.5 MCV 95 MCH 32.9 MCHC 34.7 RDW 13.3 Plt Count 202 Seg Neutrophils % 61.4 Lymphocytes % 30.3 Monocytes % 7.0 Eosinophils % 0.8 Basophils % 0.5 Absolute Neutrophils 3.7 Absolute Lymphocytes 1.8 Absolute Monocytes 0.4 Absolute Eosinophils 0.0 Absolute Basophils 0.0 Sodium 139.2 Potassium 4.0 Chloride 111 H Carbon Dioxide 23 Anion Gap 5 BUN 15 Creatinine 0.62 Est GFR ( Amer) > 60 Est GFR (Non-Af Amer) > 60 Glucose 85 Calcium 9.1 Total Bilirubin 0.6 AST 21 ALT 27 Alkaline Phosphatase 43 Total Protein 6.1 L Albumin 3.5 12/27/18 12/27/1812/27/19 12:44 12:44 15:44 Creatine Kinase 73 CK-MB (CK-2) 0.36 Troponin I < 0.012 < 0.012 Impressions: Chest X-Ray 12/27/18 12:31 IMPRESSION: NO ACUTE RADIOGRAPHIC FINDING IN THE CHEST. HARDWARE/SUPPORT DEVICE(S) IN APPROPRIATE AND EXPECTED LOCATION. Chest/Abdomen CTA 12/27/18 13:35 IMPRESSION: No CT angio evidence of acute pulmonary emboli. 8 mm nodule in the right lateral lung base, larger than on previous studies dating back to 2009. Continued periodic CT surveillance is recommended Assessment and Plan - Diagnosis (1) Chest pain Qualifiers: Chest pain type: unspecified Qualified Code(s): R07.9 - Chest pain, unspecified Is this a current diagnosis for this admission?: Yes Plan: Troponins and EKGs have been negative so far. He does have high risk for coronary event wit multiple stenting and and not compliant with medications. Will cotinue to cycle trops and EKGs and possible stress testing tomorrow.
--- NOTE | 2018-12-27 18:32 | EKG REPORT ---
SEVERITY:- ABNORMAL ECG - ATRIAL-VENTRICULAR DUAL-PACED COMPLEXES NONSPECIFIC IVCD WITH LAD : Confirmed by: Kumar Bunn MD 27-Dec-2018 18:32:32
--- NOTE | 2018-12-27 18:33 | EKG REPORT ---
SEVERITY:- ABNORMAL ECG - A-V DUAL-PACED COMPLEXES W/ SOME INHIBITION : Confirmed by: Kumar Bunn MD 27-Dec-2018 18:33:26
--- NOTE | 2018-12-27 19:55 | RADIOLOGY REPORT (SQ) ---
EXAM DESCRIPTION: U/S ABDOMEN COMPLETE W/O DOP COMPLETED DATE/TIME: 12/27/2018 6:52 pm REASON FOR STUDY: RUQ, epig pain COMPARISON: None. TECHNIQUE: Dynamic and static grayscale images acquired of the abdomen and recorded on PACS. Additio nal selected color Doppler and spectral images recorded. Note: Study does not meet criteria for complete doppler/duplex scan LIMITATIONS: None. FINDINGS: PANCREAS: No masses. Visualized pancreatic duct normal caliber. LIVER: No masses. Echotexture normal. LIVER VASCULATURE: Normal directional flow of the main portal vein and hepatic veins. GALLBLADDER: No stones. Normal wall thickness. No pericholecystic fluid. ULTRASOUND-DETECTED HUIZAR'S SIGN: Negative. INTRAHEPATIC DUCTS AND COMMON DUCT: CBD and intrahepatic ducts normal caliber. No filling defects. INFERIOR VENA CAVA: Normal flow. AORTA: No aneurysm. RIGHT KIDNEY:Normal size. Normal echogenicity. No solid or suspicious masses. No hydronephrosis. No c alcifications. LEFT KIDNEY: Normal size. Normal echogenicity. No solid or suspicious masses. No hydronephrosis. No calcifications. SPLEEN: Normal size. No solid masses. PERITONEAL AND PLEURAL SPACES: No ascites or effusions. OTHER: No other significant finding. IMPRESSION: Age-appropriate exam. No acute findings. TECHNICAL DOCUMENTATION: JOB ID: [id number] 2010 [employer]- All Rights Reserved Reading location - IP/workstation name: [employer]
[2018-12-27] MEDS: MORPHINE SULFATE 10 MG/ML INJ IV PRN (20:54)
[2018-12-27] MEDS ORDERED: ATORVASTATIN CALCIUM 40 MG TABLET PO SCH (22:00)
[2018-12-28] MEDS: MORPHINE SULFATE 10 MG/ML INJ IV PRN ×2 (00:50→13:25)
[2018-12-28 05:08] VITALS: BP 134/85
[2018-12-28] MEDS ORDERED: FONDAPARINUX SODIUM INJ 2.5 MG/0.5 ML DISP.SYRIN SUBCUT SCH (08:00)
--- NOTE | 2018-12-28 08:49 | EKG REPORT ---
SEVERITY:- ABNORMAL ECG - ATRIAL-VENTRICULAR DUAL-PACED RHYTHM : Confirmed by: Kumar Bunn MD 28-Dec-2018 08:48:06
[2018-12-28] MEDS ORDERED: ASPIRIN 81 MG TABLET, CHEWABLE PO SCH (10:00)
[2018-12-28] MEDS ORDERED: REGADENOSON INJ 0.4 MG/5 ML DISP.SYRIN IV ONE (11:57)
--- NOTE | 2018-12-28 18:00 | PDOC DISCHARGE SUMMARY ---
General - Admit/Disc Date/PCP Admission Date/Primary Care Provider: 12/27/18 17:12 Discharge Date: 12/28/18 - Discharge Diagnosis (1) Chest pain Is this a current diagnosis for this admission?: Yes (2) CAD (coronary artery disease) Is this a current diagnosis for this admission?: Yes - Additional Information Resuscitation Status: Full Code Prescriptions: Aspirin [Adult Low Dose Aspirin EC] 81 mg PO DAILY #60 tablet. Atorvastatin Calcium [Lipitor 40 mg Tablet] 40 mg PO QHS #30 tablet Clopidogrel Bisulfate [Plavix] 75 mg PO DAILY #60 tablet Gabapentin [Neurontin 100 mg Capsule] 100 mg PO Q8H PRN #30 capsule PRN Reason: Lisinopril [Prinivil 5 mg Tablet] 5 mg PO DAILY #30 tablet Metoprolol Tartrate [Lopressor 25 mg Tablet] 25 mg PO Q12 #60 tablet Pantoprazole Sodium [Protonix [address] Packet] 40 mg PO DAILY #30 granpkt. Home Medications: Albuterol Sulfate [Proair HFA Inhalation Aerosol 8.5 gm MDI] 2 puff IH Q4HP PRN 12/28/18 Aspirin [Adult Low Dose Aspirin EC] 81 mg PO DAILY #60 tablet. 12/28/18 Atorvastatin Calcium [Lipitor 40 mg Tablet] 40 mg PO QHS #30 tablet 12/28/18 Clopidogrel Bisulfate [Plavix] 75 mg PO DAILY #60 tablet 12/28/18 Gabapentin [Neurontin 100 mg Capsule] 100 mg PO Q8H PRN #30 capsule 12/28/18 Lisinopril [Prinivil 5 mg Tablet] 5 mg PO DAILY #30 tablet 12/28/18 Metoprolol Tartrate [Lopressor 25 mg Tablet] 25 mg PO Q12 #60 tablet 12/28/18 Nitroglycerin [Nitrostat 0.4 mg (1/150 Gr) Tabs 25/Bottle] 0.4 mg SL Q5MP PRN 12/28/18 Pantoprazole Sodium [Protonix [address] Packet] 40 mg PO DAILY #30 granpkt. 12/28/18 Triamcinolone Acetonide [Aristocort 0.1% Cream] 1 applic TOP DAILY MDD *APPLY TO UPPER RIGHT ARM* 12/28/18 History of Present Illness History of Present Illness: LORETTA Diane OLMEDO is a 58 year old male of HTN, asthma, CAD, prior CT, multiple stenting x 4 (2006, 2008 and recent one n [address]) who presented with chest pain. He says this started yesterdat around 1 pm while walking in the and, midsternal radiating to the right chest, stabbing in character, alternating between 3-6/10 in intensity. He says he was supposed to be on both aspirin and Effient but has not been compliant with Effient as he could not afford it. Hospital Course Hospital Course: LORETTA OLMEDO is a 58 year old male of HTN, asthma, CAD, prior CT, multiple stenting x 4 (2006, 2008 and recent one on RCA in [address]) who was admitted with chest pain. CTA chest ruled out PE but did show significant coronary calcifications. Troponins were unremarkable with no cute changes on EKG. He underwent stress testing. Discussed results with cardiology, no reversible defects. His CAD meds will be optimized. Plavix will be added instead if his previously prescribed Effient. He has been chest pain free. He will follow up with Dr. Perez, out patient. Physical Exam Vital Signs: Temp Pulse Resp BP Pulse Ox 97.7 F 64 18 134/85 H 96 12/28/18 05:07 12/28/18 14:00 12/28/18 05:07 12/28/18 05:07 12/28/18 05:07 Intake & Output 12/27/18 12/28/18 12/29/18 06:59 06:59 06:59 Intake Total 500 Output Total 900 Balance -400 Weight 211 lb 13.828 oz General appearance: PRESENT: no acute distress, well-developed, well-nourished Head exam: PRESENT: atraumatic, normocephalic Eye exam: PRESENT: conjunctiva pink, EOMI, PERRLA. ABSENT: scleral icterus Ear exam: PRESENT: normal external ear exam Mouth exam: PRESENT: moist, tongue midline Neck exam: ABSENT: carotid bruit, JVD, lymphadenopathy, thyromegaly Respiratory exam: PRESENT: clear to auscultation chente. ABSENT: rales, rhonchi, wheezes Cardiovascular exam: PRESENT: RRR. ABSENT: diastolic murmur, rubs, systolic murmur Pulses: PRESENT: normal dorsalis pedis pul GI/Abdominal exam: PRESENT: normal bowel sounds, soft. ABSENT: distended, guarding, mass, organolmegaly, rebound, tenderness Rectal exam: PRESENT: deferred Extremities exam: PRESENT: full ROM. ABSENT: calf tenderness, clubbing, pedal edema Neurological exam: PRESENT: alert, awake, oriented to person, oriented to place, oriented to time, oriented to situation, CN II-XII grossly intact. ABSENT: motor sensory deficit Results Laboratory Results: 12/27/18 12:44 12/27/18 12:44 12/27/18 12/27/18 12/27/18 12:44 12:44 15:44 Creatine Kinase 73 CK-MB (CK-2) 0.36 Troponin I < 0.012 < 0.012 12/27/18 12/28/18 22:50 07:07 Creatine Kinase CK-MB (CK-2) Troponin I < 0.012 < 0.012 Impressions: Chest X-Ray 12/27/18 12:31 IMPRESSION: NO ACUTE RADIOGRAPHIC FINDING IN THE CHEST. HARDWARE/SUPPORT DEVICE(S) IN APPROPRIATE AND EXPECTED LOCATION. Chest/Abdomen CTA 12/27/18 13:35 IMPRESSION: No CT angio evidence of acute pulmonary emboli. 8 mm nodule in the right lateral lung base, larger than on previous studies dating back to 2009. Continued periodic CT surveillance is recommended Abdomen Ultrasound 12/27/18 18:17 IMPRESSION: Age-appropriate exam. No acute findings. Qualifiers - * PATIENT BEING DISCHARGED WITH ANY OF THE FOLLOWING DIAGNOSIS: No
--- NOTE | 2018-12-28 21:31 | DRAGON STRESS TEST REPORT ---
Intravenous Lexiscan Cardiolite stress test using single photon emmision computerized tomography. Date of procedure: 12/28/2018. Ordering Provider: Dr. Rob Gibson Patient's status: NCAT patient. Indication: Chest pain in a patient with a history of coronary artery disease, and history of DC and right coronary artery stent placement in July 2018.. Coronary risk factors: Age, hypertension, dyslipidemia, and tobacco abuse disorder. Resting EKG: The patient's atrial tract and ventricular paced rhythm Stress EKG: In view of paced rhythm nondiagnostic of ischemia. The patient had no chest pain or discomfort, and there was no arrhythmias seen. Reason for termination: Protocol. Conclusions: Normal EKG and hemodynamic response to IV Lexiscan. Nuclear data: At rest the patient was given 14.53 millicuries of technetium 99m sestamibi injected intravenously. As per protocol rest non gated SPECT images were obtained. Subsequently the patient was given intravenous Lexiscan at a dose of 0.4 mg in 5 mL intravenously, followed by flush with normal saline. Subsequently the stress dose of 44.9 millicuries of technetium 99m sestamibi was injected intravenously. As per protocol stress gated images were obtained. Nuclear interpretation: Review of images showed there is approved perfusion defect of mild intensity involving the inferior wall in both rest and stress images. This inferior wall is mildly decreased motion contraction and thickening by gated study. 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 The rest of the segments of the myocardium had normal perfusion at rest, and normal perfusion post stress with IV Lexiscan. The rest of the segments of the myocardium had normal motion, contraction, and thickening by gated study. T. I D. ratio was normal at 1.05. There is no transient ischemic dilatation of the left ventricle. Computer read rest, and stress left ventricular ejection fraction were 47 %, and 43 %, respectively. Visually both the stress and rest ejection fractions were normal, and greater than 55%. Conclusion: 1. There is no scintigraphic evidence of Lexiscan induced myocardial ischemia. 2. There is scintigraphic evidence of myocardial infarction/scar of mild intra- intensity involving the inferior wall. Recommendations: 1. Aggressive treatment of coronary artery disease. The patient has recurrence of chest pain then would recommend cardiac catheterization. 2. Aggressive risk factor modification, and treating the underlying co- morbidities. [facility]
[2018-12-29] MEDS ORDERED: ENOXAPARIN SODIUM INJ 40 MG/0.4 ML DISP.SYRIN SUBCUT SCH (08:00)
== END 2018-12-28 18:20 | disposition home or self-care (01) ==
LOC: ER 12:28 → EH 17:12 → 4N 12-28 00:37
PROVIDERS: ADMIT Internal Medicine; ATTEND Internal Medicine
DX: R07.89 Other chest pain (principal); I25.10 Atherosclerotic heart disease of native coronary artery without angina pectoris; I10 Essential (primary) hypertension; J45.909 Unspecified asthma, uncomplicated; I25.2 Old myocardial infarction; R55 Syncope and collapse; R06.02 Shortness of breath; F17.200 Nicotine dependence, unspecified, uncomplicated; E78.5 Hyperlipidemia, unspecified; Z95.5 Presence of coronary angioplasty implant and graft; Z59.6 Low income; Z91.14 Patient's other noncompliance with medication regimen; Z95.0 Presence of cardiac pacemaker
CPT/HCPCS: 93005 ×2; 99285; 96374; 36415 ×2; 82553; 82550; 85025; 80053; 84484 ×2; 93017; 71045; 76700; 78452; 71275; 93010; G0378 ×2; A9500; J2785; J3490 ×5; J2270 ×2; Q9969

== ENCOUNTER → 2019-01-31 | Outpatient (CLI) | payer MEDICAID ==
--- NOTE | 2019-01-31 12:51 | RADIOLOGY REPORT (SQ) ---
EXAM DESCRIPTION: CERV SP 4 OR 5 VIEWS COMPLETED DATE/TIME: 01/31/2019 11:42 am REASON FOR STUDY: MALIGNANT NEOPLASM OF MIDDLE LOBE, BRONCHUS OR LUNG COMPARISON: None. NUMBER OF VIEWS: Five views. TECHNIQUE: AP, lateral, obliques and odontoid radiographic images acquired of the cervical spine. LIMITATIONS: None. FINDINGS: MINERALIZATION: Osteopenic ALIGNMENT: Anatomic. VERTEBRAE: Vertebral bodies of normal height. DISCS: No significant osteophytes or sclerosis. Disc height maintained. FORAMINA: Mild left C4-5 foraminal narrowing from facet and uncovertebral hypertrophy LATERAL AND POSTERIOR ELEMENTS: Facets, lateral masses and spinous processes without significant find ings. HARDWARE: None in the spine. SOFT TISSUES: No masses or calcifications. Lung apices clear. OTHER: No other significant finding. IMPRESSION: Mild left C4-5 foraminal narrowing. No acute fracture or malalignment. TECHNICAL DOCUMENTATION: JOB ID: [id number]- All Rights Reserved Reading location - IP/workstation name: [email or web address]
== END ==
LOC: RAD 10:37
PROVIDERS: ATTEND Nurse Practitioner Primary Care
DX: M54.2 Cervicalgia (principal); M48.02 Spinal stenosis, cervical region
CPT/HCPCS: 72050

== ENCOUNTER 2019-02-03 | Emergency (ER) | payer MEDICAID ==
[2019-02-03] MEDS ORDERED: DIAZEPAM INJ 10 MG/2 ML DISP.SYRIN IV ONE (00:54)
[2019-02-03 00:57] LABS: ABSOLUTE LYMPHOCYTES (AUTO) 3.1 10^3/uL (0.5-4.7); ABSOLUTE MONOCYTES (AUTO) 0.5 10^3/uL (0.1-1.4); ABSOLUTE NEUT (AUTO) 4.6 10^3/uL (1.7-8.2); BASOPHILS % (AUTO) 0.4 % (0-2); EOSINOPHILS % (AUTO) 0.5 % (0-6); HEMOGLOBIN 17.3 g/dL (13.5-17.0); LYMPHOCYTES % (AUTO) 37.7 % (13-45); MEAN CORPUSCULAR HEMOGLOBIN 33.2 pg (27.0-33.4); MEAN CORPUSCULAR HGB CONC 34.6 g/dL (32.0-36.0); MEAN CORPUSCULAR VOLUME 96 fl (80-97); MONOCYTES % (AUTO) 6.1 % (3-13); PLATELET COUNT 252 10^3/uL (150-450); RED BLOOD COUNT 5.21 10^6/uL (4.35-5.55); RED CELL DISTRIBUTION WIDTH 13.3 % (11.5-14.0); SEGMENTED NEUTROPHILS % (AUTO) 55.3 % (42-78); TOTAL CELLS COUNTED % (AUTO) 100 %; WHITE BLOOD COUNT 8.3 10^3/uL (4.0-10.5)
--- NOTE | 2019-02-03 00:59 | ER Document Report ---
ED General - General Chief Complaint: ETOH Abuse Stated Complaint: EOTH ABUSE Time Seen by Provider: 02/03/19 00:18 Cannot obtain history due to: Intoxicated, Uncooperative Notes: Patient is a 58-year-old male with a past medical history of alcohol abuse, coronary artery disease, presents with a administrative representative from [facility] apparently with desire for alcohol detox. The patient is heavily intoxicated, unable to provide meaningful history. [facility] administrative representative left abruptly from the department without providing additional details. The patient states that he "hurts everywhere". Denies chest pain to me although complained of this in triage. Repeatedly states "I just feel bad" when I try to elicit more history. Admits to doing cocaine, alcohol, marijuana today. TRAVEL OUTSIDE OF THE [place] IN LAST 30 DAYS: No - Related Data Allergies/Adverse Reactions: No Known Allergies Allergy (Verified 02/03/19 00:02) Past Medical History - General Information source: Patient Cannot obtain history due to: Intoxicated, Uncooperative - Social History Smoking Status: Current Every Day Smoker Frequency of alcohol use: Heavy Drug Abuse: Cocaine, Marijuana Family History: Reviewed & Not Pertinent - Past Medical History Cardiac Medical History: Reports: Hx Coronary Artery Disease, Hx Heart Attack, Hx Hypercholesterolemia, Hx Hypertension Pulmonary Medical History: Reports: Hx COPD, Hx Pneumonia Renal/ Medical History: Reports: Hx Kidney Stones - 1983. Denies: Hx Peritoneal Dialysis Psychiatric Medical History: Denies: Hx Depression Past Surgical History: Reports: Hx Cardiac Catheterization - stent x2, Hx Cardiac Surgery - pacemaker, Hx Coronary Stent, Hx Pacemaker - Immunizations Hx Diphtheria, Pertussis, Tetanus Vaccination: Yes Hx Pneumococcal Vaccination: 06/05/14 Review of Systems - Review of Systems -: Yes ROS unobtainable due to patient's medical condition Physical Exam - Vital signs Vitals: Temp Pulse Resp BP Pulse Ox 98.5 F 78 16 123/94 H 97 02/03/19 00:02 02/03/19 00:02 02/03/19 00:02 02/03/19 00:02 02/03/19 00:02 Interpretation: Normal Notes: PHYSICAL EXAMINATION: GENERAL: Disheveled, appears older than stated age, acutely intoxicated but in no overt distress HEAD: Atraumatic, normocephalic. EYES: Pupils equal round and reactive to light, extraocular movements intact, sclera anicteric, conjunctiva are normal. ENT: nares patent, oropharynx clear without exudates. Moderately dry mucous membranes. NECK: Normal range of motion, supple without lymphadenopathy LUNGS: Breath sounds clear to auscultation bilaterally and equal. No wheezes rales or rhonchi. HEART: Regular rate and rhythm without murmurs ABDOMEN: Soft, nontender, normoactive bowel sounds. No guarding, no rebound. No masses appreciated. EXTREMITIES: Normal range of motion, no pitting or edema. No cyanosis. NEUROLOGICAL: No focal neurological deficits. Moves all extremities spontaneously and on command. PSYCH: Intoxicated, agitated SKIN: Warm, Dry, normal turgor, no rashes or lesions noted. Course - Re-evaluation Re-evalutation: 02/03/19 00:57 Patient presents acutely intoxicated. He was delivered here by an [facility] administrative representative allegedly seeking alcohol detox although the patient makes no request of such a service while here in the emergency department. Patient states over and over "I feel real bad" but is unable to clarify further. Admits to drinking heavily and doing crack cocaine within the past several hours. It is unclear to me on what basis they are seen this patient is looking for rehab. Moreover, we do not provide acute alcohol detoxification for an acutely intoxicated patient. The patient was apparently complaining of chest pain although denies this claim to me. Denies SI or HI to me as well as nursing staff. Patient is obviously quite intoxicated, somewhat agitated, having difficulty getting restful in bed. Labs are pending. Diazepam IV will be administered. When the patient is clinically sober he will be reassessed for his desire for sobriety. 02/03/19 02:17 Patient is continuously asking for additional medications to "relax him". The patient is demanding additional medications although is not showing any overt signs of withdrawal. His alcohol level is markedly elevated at 251. I have instructed the patient that he can follow-up with outpatient resources should he desire alcohol detoxification. The remainder of his exam and labs is otherwise broadly unremarkable. At this time will discharge with return precautions and follow-up recommendations. - Vital Signs Vital signs: Temp Pulse Resp BP Pulse Ox 98.5 F 78 17 133/93 H 95 02/03/19 00:02 02/03/19 00:02 02/03/19 02:00 02/03/19 02:01 02/03/19 02:01 - Laboratory Result Diagrams: 02/03/19 00:30 02/03/19 00:30 Laboratory results interpreted by me: 02/03/19 02/03/19 02/03/19 00:30 00:30 00:30 Hgb 17.3 H Sodium 151.1 H Chloride 112 H Urine Blood SMALL H - EKG Interpretation by Me Additional EKG results interpreted by me: 02/03/19 00:59 Atrially sensed, ventricularly paced rhythm, rate 77. Unchanged from previous. Discharge - Discharge Clinical Impression: Polysubstance abuse Alcohol intoxication Qualifiers: Complication of substance-induced condition: uncomplicated Qualified Code(s): F10.920 - Alcohol use, unspecified with intoxication, uncomplicated Condition: Good Disposition: HOME, SELF-CARE Additional Instructions: You were seen in the emergency department today for being drunk. Being seen in the emergency department after drinking alcohol is a serious indicator that you have a problem with alcohol. You should seek help with the attached resources for your problem drinking. Please return to the emergency room immediately if you experience any concerning symptoms including high fevers, severe headache, chest pain, difficulty breathing, abdominal pain, slurred speech, numbness or weakness in your arms or legs, or any other symptom that concerns you.
[2019-02-03 01:13] LABS: ALANINE AMINOTRANSFERASE 30 U/L (21-72); ALBUMIN 4.9 g/dL (3.5-5.0); ALCOHOL 251 mg/dL (NONE DETECTED); ALKALINE PHOSPHATASE 67 U/L (38-126); ANION GAP 16 (5-19); ASPARTATE AMINO TRANSFERASE 27 U/L (17-59); BILIRUBIN,DIRECT 0.3 mg/dL (0.0-0.4); BILIRUBIN,TOTAL 0.8 mg/dL (0.2-1.3); BLOOD UREA NITROGEN 7 mg/dL (7-20); CALCIUM 9.9 mg/dL (8.4-10.2); CARBON DIOXIDE 23 mmol/L (22-30); CHLORIDE 112 mmol/L (98-107); GLUCOSE 82 mg/dL (75-110); POTASSIUM 4.2 mmol/L (3.6-5.0); SODIUM 151.1 mmol/L (137-145)
[2019-02-03 01:20] LABS: APPEARANCE,URINE CLEAR; BILIRUBIN,URINE NEGATIVE (NEGATIVE); COLOR,URINE COLORLESS; GLUCOSE, URINE NEGATIVE (NEGATIVE); KETONES,URINE NEGATIVE (NEGATIVE); LEUKOCYTE ESTERASE,URINE NEGATIVE (NEGATIVE); NITRITE,URINE NEGATIVE (NEGATIVE); PROTEIN,URINE NEGATIVE (NEGATIVE); URINE SPECIFIC GRAVITY 1.001; UROBILINOGEN,URINE NEGATIVE mg/dL (<2.0)
[2019-02-03 02:01] LABS: URINE AMPHETAMINES SCREEN NEGATIVE; URINE BARBITURATES SCREEN NEGATIVE; URINE BENZODIAZEPINES SCREEN NEGATIVE; URINE COCAINE SCREEN NEGATIVE; URINE MARIJUANA (THC) SCREEN NEGATIVE; URINE METHADONE SCREEN NEGATIVE; URINE PHENCYCLIDINE SCREEN NEGATIVE
[2019-02-03 03:01] VITALS: BP 133/93
--- NOTE | 2019-02-03 23:45 | EKG REPORT ---
SEVERITY:- ABNORMAL ECG - A-V DUAL-PACED COMPLEXES W/ SOME INHIBITION : Confirmed by: Christi Mustafa MD 03-Feb-2019 23:43:17
== END 2019-02-03 02:43 | disposition home or self-care (01) ==
LOC: ER
DX: F10.920 Alcohol use, unspecified with intoxication, uncomplicated (principal); F19.10 Other psychoactive substance abuse, uncomplicated; I25.10 Atherosclerotic heart disease of native coronary artery without angina pectoris; F17.200 Nicotine dependence, unspecified, uncomplicated; E78.00 Pure hypercholesterolemia, unspecified; I10 Essential (primary) hypertension; I25.2 Old myocardial infarction; Z87.442 Personal history of urinary calculi; Z95.0 Presence of cardiac pacemaker
CPT/HCPCS: 93005; 99284; 96374; 36415; 80307 ×2; 85025; 80053; 81001; 84484; 93010; J3360

== ENCOUNTER 2019-05-23 17:10 | Inpatient (IN) | payer MEDICAID, OTHER ==
--- NOTE | 2019-05-23 19:10 | ER Document Report ---
ED Medical Screen (RME) - General Chief Complaint: Fall Injury Stated Complaint: BACK PAIN/FALL Time Seen by Provider: 05/23/19 18:47 TRAVEL OUTSIDE OF THE [place] IN LAST 30 DAYS: No - HPI Notes: 05/23/19 19:10 58-year-old male to the emergency department from [facility] with complaints of fall just prior to arrival. He states he was there for alcohol detox and was trying to get a urine specimen when he "blacked out" and fell striking his head neck right shoulder and low back. He states he had a little bit of urine Surendra incontinence but denies any bowel incontinence. He denies any saddle paresthesia. Admits to bilateral leg pain. He states that he had at least 3 beers tonight and drinks "as much as he can get his hands on on a daily basis". He is never had a seizure before while trying to go through alcohol withdrawal. He states that occasionally he will black out when he drinks but he denies feeling like he was going to pass out prior to the episode. Performed a brief local screening exam and have ordered several imaging studies for the patient. He is in a c-collar and have asked him to keep the collar on until further evaluation. We will have him embedded on the main side and seen by colleague. - Related Data Allergies/Adverse Reactions: No Known Allergies Allergy (Verified 02/03/19 00:02) Past Medical History - Social History Frequency of alcohol use: Heavy - Past Medical History Cardiac Medical History: Reports: Hx Coronary Artery Disease, Hx Heart Attack, Hx Hypercholesterolemia, Hx Hypertension Pulmonary Medical History: Reports: Hx COPD, Hx Pneumonia Renal/ Medical History: Reports: Hx Kidney Stones - 1983. Denies: Hx Peritoneal Dialysis Psychiatric Medical History: Denies: Hx Depression Past Surgical History: Reports: Hx Cardiac Catheterization - stent x2, Hx Cardiac Surgery - pacemaker, Hx Coronary Stent, Hx Pacemaker - Immunizations Hx Diphtheria, Pertussis, Tetanus Vaccination: Yes Physical Exam - Vital signs Vitals: Temp Pulse Resp BP Pulse Ox 98.1 F 87 20 107/72 96 05/23/19 17:25 05/23/19 17:25 05/23/19 17:25 05/23/19 17:25 05/23/19 17:25 Course - Vital Signs Vital signs: Temp Pulse Resp BP Pulse Ox 98.1 F 87 20 107/72 96 05/23/19 17:25 05/23/19 17:25 05/23/19 17:25 05/23/19 17:25 05/23/19 17:25
[2019-05-23] MEDS ORDERED: MORPHINE SULFATE 10 MG/ML INJ IV ONE (19:23)
[2019-05-23 20:29] LABS: ABSOLUTE LYMPHOCYTES (AUTO) 2.2 10^3/uL (0.5-4.7); ABSOLUTE MONOCYTES (AUTO) 0.4 10^3/uL (0.1-1.4); ABSOLUTE NEUT (AUTO) 4.8 10^3/uL (1.7-8.2); BASOPHILS % (AUTO) 0.4 % (0-2); EOSINOPHILS % (AUTO) 0.5 % (0-6); HEMATOCRIT 48.5 % (37.9-51.0); HEMOGLOBIN 16.6 g/dL (13.5-17.0); LYMPHOCYTES % (AUTO) 29.5 % (13-45); MEAN CORPUSCULAR HEMOGLOBIN 33.2 pg (27.0-33.4); MEAN CORPUSCULAR HGB CONC 34.3 g/dL (32.0-36.0); MEAN CORPUSCULAR VOLUME 97 fl (80-97); MONOCYTES % (AUTO) 5.4 % (3-13); PLATELET COUNT 203 10^3/uL (150-450); RED BLOOD COUNT 5.01 10^6/uL (4.35-5.55); RED CELL DISTRIBUTION WIDTH 13.2 % (11.5-14.0); SEGMENTED NEUTROPHILS % (AUTO) 64.2 % (42-78); TOTAL CELLS COUNTED % (AUTO) 100 %; WHITE BLOOD COUNT 7.4 10^3/uL (4.0-10.5)
[2019-05-23 20:46] LABS: ANION GAP 13 (5-19); BLOOD UREA NITROGEN 13 mg/dL (7-20); CALCIUM 10.4 mg/dL (8.4-10.2); CARBON DIOXIDE 22 mmol/L (22-30); CHLORIDE 107 mmol/L (98-107); GLUCOSE 85 mg/dL (75-110); POTASSIUM 3.8 mmol/L (3.6-5.0)
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
--- NOTE | 2019-05-23 21:40 | RADIOLOGY REPORT (SQ) ---
EXAM DESCRIPTION: CT CERVICAL SPINE WITHOUT IV CONTRAST COMPLETED DATE/TME: 05/23/2019 19:03 CLINICAL HISTORY: 58 years, Male, fall, ETOH intoxication This exam was performed according to our departmental dose-optimization program which includes automated exposure control, adjustment of the mA and/or kVp according to patient size and/or use of iterative reconstruction technique where applicable. FINDINGS: Vertebral body heights are intact. Alignment is intact. No subluxation. Mild degenerative changes at C1-2. Mild degenerative changes at C4-5. No significant prevertebral soft tissue swelling. Odontoid process is intact. IMPRESSION: No fracture or subluxation. Mild degenerative changes.
--- NOTE | 2019-05-23 21:41 | RADIOLOGY REPORT (SQ) ---
XR CHEST 2 VIEWS CLINICAL STATEMENT: fall COMPARISON: Chest CT dated 12/27/2018 FINDINGS: Heart is mildly enlarged. Left chest pacemaker leads. There is no focal lung consolidation or pleural effusion. No evidence of pulmonary edema or pneumothorax. IMPRESSION: No acute cardiopulmonary disease.
--- NOTE | 2019-05-23 21:41 | RADIOLOGY REPORT (SQ) ---
XR SHOULDER 2 OR MORE VIEWS CLINICAL STATEMENT: fall, shoulder pain, back pain COMPARISON: None FINDINGS: Bony alignment is anatomic. There is no fracture or dislocation. The soft tissues are unremarkable. Bones are osteopenic. Mild acromioclavicular and mild glenohumeral degenerative changes. IMPRESSION: No fracture. Mild degenerative changes.
--- NOTE | 2019-05-23 21:42 | RADIOLOGY REPORT (SQ) ---
XR LUMBAR SPINE ANTEROPOSTERIOR, LATERAL, AND OBLIQUES CLINICAL STATEMENT: fall, shoulder pain, back pain COMPARISON: None FINDINGS: Vertebral body heights are intact. Alignment is intact. No subluxation. Pedicles are intact. Mild multilevel degenerative changes. Mild vascular atherosclerotic aortic calcification. IMPRESSION: No fracture. Mild degenerative changes.
--- NOTE | 2019-05-23 21:45 | RADIOLOGY REPORT (SQ) ---
EXAM DESCRIPTION: CT HEAD WITHOUT IV CONTRAST COMPLETED DATE/TME: 05/23/2019 19:03 CLINICAL HISTORY: 58 years, Male, fall, head injury COMPARISON: None. TECHNIQUE: Noncontrast CT of the head was performed. Coronal and sagittal reformations were created. Images stored on PACS. All CT scanners at this facility use dose modulation, iterative reconstruction, and/or weight based dosing when appropriate to reduce radiation dose to as low as reasonably achievable (ALARA). [facility]: Dose Right [facility]: CareDose [facility]: Dose Right [facility]: Teradose 4D [facility]: [employer] LIMITATIONS: None. FINDINGS: Brain parenchyma is normal in attenuation. No acute intracranial hemorrhage, mass effect, or extra-axial fluid is seen. The ventricles, sulci, and basilar cisterns are normal in size and configuration. Globes and orbits are normal. Paranasal sinuses and mastoid air cells are clear. There are no depressed skull fractures. However, there is a lucent lesion located within the left frontal calvarium, best visualized in image 27 of series 3. Calcifications are evident about the parasellar carotid arteries. IMPRESSION: No acute intracranial hemorrhage or mass effect. Focal area of lucency located within the left frontal calvarium. It is uncertain whether this represents postsurgical change, and erosive lucent lesion related to metastatic disease, or a combination of both. Comparison with prior imaging from other institutions would be of benefit, especially given the provided history of malignancy. TECHNICAL DOCUMENTATION: Quality ID # 436: Final reports with documentation of one or more dose reduction techniques (e.g., Automated exposure control, adjustment of the mA and/or kV according to patient size, use of iterative reconstruction technique) copyright 2011 [employer]- All Rights Reserved
[2019-05-23 22:45] LABS: INTERNATIONAL RATION (INR) 1.11; PROTHROMBIN TIME 14.4 SEC (11.4-15.4)
[2019-05-23 22:46] LABS: PARTIAL THROMBOPLASTIN TIME 27.8 SEC (23.5-35.8)
[2019-05-23] MEDS ORDERED: DIPHENHYDRAMINE HCL 25 MG CAPSULE PO ONE (22:46)
[2019-05-23 23:03] LABS: ALBUMIN 4.5 g/dL (3.5-5.0); ALCOHOL 73 mg/dL (NONE DETECTED); ALKALINE PHOSPHATASE 67 U/L (38-126); ASPARTATE AMINO TRANSFERASE 31 U/L (17-59); BILIRUBIN,DIRECT 0.2 mg/dL (0.0-0.4); BILIRUBIN,TOTAL 0.5 mg/dL (0.2-1.3); CREATINE KINASE 152 U/L (55-170); TOTAL PROTEIN 7.3 g/dL (6.3-8.2)
[2019-05-23 23:21] LABS: APPEARANCE,URINE CLEAR; BILIRUBIN,URINE NEGATIVE (NEGATIVE); COLOR,URINE YELLOW; GLUCOSE, URINE NEGATIVE (NEGATIVE); KETONES,URINE NEGATIVE (NEGATIVE); LEUKOCYTE ESTERASE,URINE NEGATIVE (NEGATIVE); NITRITE,URINE NEGATIVE (NEGATIVE); PROTEIN,URINE NEGATIVE (NEGATIVE); URINE SPECIFIC GRAVITY 1.012; UROBILINOGEN,URINE NEGATIVE mg/dL (<2.0)
[2019-05-23 23:34] LABS: URINE AMPHETAMINES SCREEN NEGATIVE; URINE BARBITURATES SCREEN NEGATIVE; URINE BENZODIAZEPINES SCREEN NEGATIVE; URINE COCAINE SCREEN UNCONFIRMED POSITIVE; URINE MARIJUANA (THC) SCREEN UNCONFIRMED POSITIVE; URINE METHADONE SCREEN NEGATIVE; URINE PHENCYCLIDINE SCREEN NEGATIVE
[2019-05-24] MEDS ORDERED: LEVALBUTEROL HCL NEB 0.63 MG/3 ML AMPUL NEB PRN (03:25)
[2019-05-24] MEDS ORDERED: DIAZEPAM INJ 10 MG/2 ML DISP.SYRIN IV PRN (03:25)
[2019-05-24] MEDS ORDERED: HYDRALAZINE HCL INJ/PF 20 MG/1 ML SDV IV PRN (03:25)
[2019-05-24] MEDS ORDERED: MAGNESIUM HYDROXIDE SUSP 30 ML UDCUP PO PRN (03:25)
[2019-05-24] MEDS ORDERED: NICOTINE 21 MG/24 HR PATCH.TD24 TD PRN (03:25)
[2019-05-24] MEDS ORDERED: METOPROLOL TARTRATE PF/INJ 5 MG/5 ML SDV IV PRN (03:25)
[2019-05-24] MEDS ORDERED: MAG HYDROX/AL HYDROX/SIMETH SUSP 30 ML UDCUP PO PRN (03:25)
[2019-05-24] MEDS ORDERED: CHLORPROMAZINE HCL INJ 25 MG/1 ML AMPULE IV PRN (03:25)
[2019-05-24 04:35] LABS: CREATINE KINASE MB 0.96 ng/mL (<4.55)
[2019-05-24 04:38] LABS: TROPONIN I < 0.012 ng/mL
[2019-05-24] MEDS: HEPARIN SOD (PORCINE) 5,000 UNIT/ML 1 ML VIAL SUBCUT SCH ×3 (05:34→21:22)
[2019-05-24] MEDS: NALBUPHINE HCL INJ 10 MG/1 ML AMPULE IV PRN ×3 (05:34→11:42)
[2019-05-24] MEDS: DIAZEPAM 5 MG TABLET PO SCH ×5 (05:34→21:25)
--- NOTE | 2019-05-24 06:19 | PDOC H&P ---
History of Present Illness Admission Date/PCP: 05/24/19 01:07 No local PCP Patient complains of: Chest pain History of Present Illness: LORETTA OLMEDO is a 58 year old male who presented to the emergency room complaining of an acute fall with associated injuries. He admits that while at a local detox center he got up to go to the bathroom to provide a urine specimen and blacked out. He fell striking his head, neck, shoulder and back and presented with the resultant complaint of pain in these areas. He admitted having 3 beers prior to his arrival at the emergency room on the evening of 05/23/2018. He also complained of sharp chest pain in his left chest straight through to his left shoulder blade area which occurred just prior to his blackout. He admits numerous prior similar episodes of chest pain and "blacking out". He has not identified any additional aggravating or ameliorating factors for his blackouts and falls. In the emergency room he was found to have cardiac enzymes and EKG test results which showed no evidence of acute myocardial ischemia or injury. Patient was subsequently admitted to observation status for further evaluation and treatment. Past Medical History Cardiac Medical History: Reports: Congestive Heart Failure - Left ventricular ejection fraction 40 to 45% in 2013, Coronary Artery Disease, Myocardial Infar ction, Hyperlipidema, Hypertension Denies: Atrial Fibrillation Pulmonary Medical History: Reports: Chronic Obstructive Pulmonary Disease (COPD), Pneumonia Denies: Asthma EENT Medical History: Denies: Cataracts, Ears - Hearing aids Neurological Medical History: Denies: Hemorrhagic CVA, Ischemic CVA, Seizures Endocrine Medical History: Denies: Diabetes Mellitus Type 1, Diabetes Mellitus Type 2, Hyperthyroidism, Hypothyroidism Renal/ Medical History: Denies: Chronic Kidney Disease, Nephrolithiasis Malignancy Medical History: Reports: None GI Medical History: Denies: Cirrhosis, Crohn's Disease, Hepatitis, Ulcerative Colitis Musculoskeltal Medical History: Denies: Arthritis, Gout Skin Medical History: Denies: Eczema, Psoriasis Psychiatric Medical History: Reports: Alcohol Dependency, Substance Abuse, Tobacco Dependency Denies: Depression Traumatic Medical History: Reports: None Hematology: Denies: Anemia, Bleeding Tendencies Infectious Medical History: Reports: None Past Surgical History Past Surgical History: Reports: Cardiac Catheterization, Coronary Stent - X 2, Pacemaker Social History Information Source: Patient Lives with: Friend Smoking Status: Current Every Day Smoker Frequency of Alcohol Use: Heavy Hx Recreational Drug Use: Yes Drugs: Cocaine - Crack cocaine, Other - "Anything I can get" Hx Prescription Drug Abuse: No - Advance Directive Resuscitation Status: Full Code Surrogate healthcare decision maker:: Heriberto Middleton Family History Family History: CAD, Hypertension. denies: DM, Malignancy Parental Family History Reviewed: Yes Children Family History Reviewed: No Sibling(s) Family History Reviewed.: Yes Medication/Allergy Home Medications: Albuterol Sulfate [Proair HFA Inhalation Aerosol 8.5 gm MDI] 2 puff IH Q4HP PRN 12/28/18 Aspirin [Adult Low Dose Aspirin EC] 81 mg PO DAILY #60 tablet. 12/28/18 Atorvastatin Calcium [Lipitor 40 mg Tablet] 40 mg PO QHS #30 tablet 12/28/18 Clopidogrel Bisulfate [Plavix] 75 mg PO DAILY #60 tablet 12/28/18 Gabapentin [Neurontin 100 mg Capsule] 100 mg PO Q8H PRN #30 capsule 12/28/18 Lisinopril [Prinivil 5 mg Tablet] 5 mg PO DAILY #30 tablet 12/28/18 Metoprolol Tartrate [Lopressor 25 mg Tablet] 25 mg PO Q12 #60 tablet 12/28/18 Nitroglycerin [Nitrostat 0.4 mg (1/150 Gr) Tabs 25/Bottle] 0.4 mg SL Q5MP PRN 12/28/18 Pantoprazole Sodium [Protonix [address] Packet] 40 mg PO DAILY #30 granpkt. 12/28/18 Triamcinolone Acetonide [Aristocort 0.1% Cream] 1 applic TOP DAILY MDD *APPLY TO UPPER RIGHT ARM* 12/28/18 Allergies/Adverse Reactions: No Known Allergies Allergy (Verified 02/03/19 00:02) Review of Systems Constitutional: ABSENT: chills, fever(s) Eyes: ABSENT: visual disturbances, other - Eye pain Ears: ABSENT: hearing changes, other - Ear pain Nose, Mouth, and Throat: ABSENT: mouth pain, sore throat Cardiovascular: ABSENT: chest pain, palpitations Respiratory: ABSENT: cough, dyspnea Gastrointestinal: ABSENT: abdominal pain, constipation, diarrhea, nausea, vomiting Genitourinary: ABSENT: dysuria, hematuria Musculoskeletal: ABSENT: back pain, joint swelling Integumentary: ABSENT: pruritus, rash Neurological: PRESENT: as per HPI, syncope. ABSENT: confusion, convulsions, focal weakness, memory loss Psychiatric: ABSENT: anxiety, depression Endocrine: ABSENT: cold intolerance, heat intolerance Hematologic/Lymphatic: ABSENT: easy bleeding, easy bruising Allergic/Immunologic: ABSENT: seasonal rhinorrhea Physical Exam Vital Signs: Temp Pulse Resp BP Pulse Ox 98.1 F 87 15 119/77 92 05/23/19 17:25 05/23/19 17:25 05/24/19 02:01 05/24/19 02:00 05/24/19 02:01 Intake & Output 05/22/19 05/23/19 05/24/19 23:59 23:59 23:59 Weight 79.5 kg General appearance: PRESENT: no acute distress, cooperative Head exam: PRESENT: atraumatic, normocephalic Eye exam: PRESENT: conjunctiva pink. ABSENT: conjunctival injection, scleral icterus Ear exam: PRESENT: normal external ear exam. ABSENT: bleeding, drainage Mouth exam: PRESENT: dry mucosa, neck supple Neck exam: ABSENT: thyromegaly, tracheal deviation Respiratory exam: PRESENT: clear to auscultation chente, symmetrical, unlabored Cardiovascular exam: PRESENT: RRR. ABSENT: clicks, gallop, rubs Pulses: PRESENT: normal radial pulses, normal dorsalis pedis pul Vascular exam: PRESENT: normal capillary refill. ABSENT: pallor GI/Abdominal exam: PRESENT: normal bowel sounds, soft Rectal exam: PRESENT: deferred Extremities exam: ABSENT: joint swelling, pedal edema Musculoskeletal exam: ABSENT: deformity, dislocation Neurological exam: PRESENT: alert, oriented to person, oriented to place, oriented to time, oriented to situation, CN II-XII grossly intact. ABSENT: motor sensory deficit Psychiatric exam: PRESENT: appropriate affect, normal mood Skin exam: PRESENT: dry, intact, warm. ABSENT: jaundice, rash, urticaria Results Laboratory Results: 05/23/19 20:05 05/23/19 20:05 05/23/19 05/23/19 05/23/19 20:05 20:05 20:05 WBC 7.4 RBC 5.01 Hgb 16.6 Hct 48.5 MCV 97 MCH 33.2 MCHC 34.3 RDW 13.2 Plt Count 203 Seg Neutrophils % 64.2 Sodium 142.0 Potassium 3.8 Chloride 107 Carbon Dioxide 22 Anion Gap 13 BUN 13 Creatinine 0.73 Est GFR ( Amer) > 60 Glucose 85 Calcium 10.4 H Magnesium 1.9 Total Bilirubin 0.5 AST 31 Alkaline Phosphatase 67 Total Protein 7.3 Albumin 4.5 Urine Color Urine Appearance Urine pH Ur Specific [place] Urine Protein Urine Glucose (UA) Urine Ketones Urine Blood Urine Nitrite Ur Leukocyte Esterase Urine WBC (Auto) Urine RBC (Auto) 05/23/19 22:45 WBC RBC Hgb Hct MCV MCH MCHC RDW Plt Count Seg Neutrophils % Sodium Potassium Chloride Carbon Dioxide Anion Gap BUN Creatinine Est GFR ( Amer) Glucose Calcium Magnesium Total Bilirubin AST Alkaline Phosphatase Total Protein Albumin Urine Color YELLOW Urine Appearance CLEAR Urine pH 5.0 Ur Specific [place] 1.012 Urine Protein NEGATIVE Urine Glucose (UA) NEGATIVE Urine Ketones NEGATIVE Urine Blood SMALL H Urine Nitrite NEGATIVE Ur Leukocyte Esterase NEGATIVE Urine WBC (Auto) 2 Urine RBC (Auto) 1 05/23/19 05/23/19 20:05 20:05 Creatine Kinase 152 Troponin I < 0.012 Impressions: Cervical Spine CT 05/23/19 19:03 IMPRESSION: No fracture or subluxation. Mild degenerative changes. Head CT 05/23/19 19:03 IMPRESSION: No acute intracranial hemorrhage or mass effect. Focal area of lucency located within the left frontal calvarium. It is uncertain whether this represents postsurgical change, and erosive lucent lesion related to metastatic disease, or a combination of both. Comparison with prior imaging from other institutions would be of benefit, especially given the provided history of malignancy. TECHNICAL DOCUMENTATION: Quality ID # 436: Final reports with documentation of one or more dose reduction techniques (e.g., Automated exposure control, adjustment of the mA and/or kV according to patient size, use of iterative reconstruction technique) copyright 2011 [employer]- All Rights Reserved Lumbar Spine X-Ray 05/23/19 19:09 IMPRESSION: No fracture. Mild degenerative changes. Shoulder X-Ray 05/23/19 19:09 IMPRESSION: No fracture. Mild degenerative changes. Chest X-Ray 05/23/19 20:50 IMPRESSION: No acute cardiopulmonary disease. Assessment and Plan - Diagnosis (1) Syncope and collapse Is this a current diagnosis for this admission?: Yes Plan: The patient has numerous prior similar episodes of "blackouts" and relates that this is a fairly typical event for him. He would not of come to the hospital [facility] for hurting his shoulder and back in the fall. He has a previous echocardiogram which demonstrated chronic systolic congestive heart failure and he is admittedly noncompliant with treatment. Serial cardiac enzymes will be obtained and a carotid Doppler study will be performed. Further evaluation or discharge will be determined after these results are available. (2) Closed head injury Qualifiers: Encounter type: initial encounter Qualified Code(s): S09.90XA - Unspecified injury of head, initial encounter Is this a current diagnosis for this admission?: Yes Plan: Patient will have neuro checks performed every 4 hours during his hospital course. CT scan of the head was negative. Patient will be treated with Tylenol for lesser pain and will receive Nubain 5 to 10 mg IV every 3 hours on an as needed basis using a sliding scale for pain. (3) HTN (hypertension) Qualifiers: Hypertension type: essential hypertension Qualified Code(s): I10 - Essential (primary) hypertension Is this a current diagnosis for this admission?: Yes Plan: Patient will be continued on his usual antihypertensive regimen and a cardiac diet during his hospital course. His blood pressure be monitored on a regular basis throughout his hospital stay. (4) CAD (coronary artery disease) Qualifiers: Coronary Disease-Associated Artery/Lesion type: [place] artery [place] vs. transplanted heart: [place] heart Associated angina: without angina Qualified Code(s): I25.10 - Atherosclerotic heart disease of [place] coronary artery without angina pectoris Is this a current diagnosis for this admission?: Yes Plan: Patient will be treated with a cardiac diet and he will be continued on his usual or recommended medical regiment. 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 (5) ETOH abuse Is this a current diagnosis for this admission?: Yes Plan: Discontinuation of alcohol use is recommended. Patient is planning to enter rehab and hopes to have a successful recovery. Patient will be observed for signs of alcohol withdrawal and will be treated with Valium 10 mg IV q. one hour on a as needed basis for severe withdrawal symptoms. Additionally he will be treated with Valium 5 mg p.o. every 4 hours and he will also have available Thorazine 25 mg IV every 8 hours as needed agitation or hallucinations. (6) Tobacco use disorder, severe, dependence Is this a current diagnosis for this admission?: Yes Plan: Smoking cessation is advised and counseled briefly at bedside. A nicotine replacement patch is available for the patient's use if required. - Time Time Spent with patient: 25-34 minutes - Inpatient Certification Based on my medical assessment, after consideration of the patient's comorbidities, presenting symptoms, or acuity I expect that the services needed warrant INPATIENT care.: No I certify that my determination is in accordance with my understanding of Medicare's requirements for reasonable and necessary INPATIENT services [42 CFR 412.3e].: No Medical Necessity: Need Close Monitoring Due to Risk of Patient Decompensation, Need For Continuous Telemetry Monitoring
--- NOTE | 2019-05-24 06:39 | EKG REPORT ---
SEVERITY:- ABNORMAL ECG - ATRIAL-SENSED VENTRICULAR-PACED COMPLEXES NONSPECIFIC IVCD WITH LAD : Confirmed by: Kumar Bunn MD 24-May-2019 06:38:30
[2019-05-24] MEDS: ACETAMINOPHEN 325 MG TABLET PO PRN ×2 (07:39→11:42)
[2019-05-24] MEDS: DOCUSATE SODIUM 100 MG CAPSULE PO SCH ×2 (09:52→19:21)
[2019-05-24 10:18] LABS: CREATINE KINASE MB 0.68 ng/mL (<4.55)
[2019-05-24 10:20] LABS: TROPONIN I < 0.012 ng/mL
[2019-05-24] MEDS ORDERED: (PENDING PHARMACY ID) (Clonazepam [Klonopin] 0.5 MG) PO PRN (13:33)
[2019-05-24] MEDS ORDERED: CLONAZEPAM 1 MG TABLET PO PRN (13:48)
[2019-05-24] MEDS: GABAPENTIN 100 MG CAPSULE PO SCH ×2 (15:24→21:25)
--- NOTE | 2019-05-24 16:58 | RADIOLOGY REPORT (SQ) ---
EXAM DESCRIPTION: CAROTID DOPPLER COMPLETED DATE/TIME: 05/24/2019 4:44 pm REASON FOR STUDY: syncope COMPARISON: None. TECHNIQUE: Grayscale ultrasound, Doppler velocity and spectra, and color Doppler images acquired of the extra-cranial carotid and vertebral arteries. Images stored on PACS. LIMITATIONS: None. FINDINGS: RIGHT CAROTID CCA Velocities: Within normal limits. ICA Velocities Peak systolic 97 cm/s. End diastolic 51 cm/s. Proximal ICA/CCA peak systolic ratio 0.89. The small amount of plaque in the carotid bulb. LEFT CAROTID CCA Velocities: Within normal limits. ICA Velocities Peak systolic 86 cm/s. End diastolic 40 cm/s. Proximal ICA/CCA peak systolic ratio 0.81. Small amount of plaque in the carotid bulb. VERTEBRAL ARTERIES: Antegrade flow. Normal waveforms. SUBCLAVIAN ARTERIES: No finding. OTHER: No other significant finding. IMPRESSION: NO HEMODYNAMICALLY SIGNIFICANT STENOSIS. COMMENT: Quality ID #195: Velocity criteria are extrapolated from the diameter data as defined by t he Society of Radiologists in Ultrasound Consensus Conference. Radiology 2003: 229; 340-346. TECHNICAL DOCUMENTATION: JOB ID: [id number] [employer]- All Rights Reserved Reading location - IP/workstation name: [email or web address]
[2019-05-24 17:55] LABS: CREATINE KINASE MB 0.69 ng/mL (<4.55)
[2019-05-24 17:57] LABS: TROPONIN I < 0.012 ng/mL
[2019-05-24] MEDS ORDERED: (PENDING PHARMACY ID) (Budesonide [Pulmicort 180 Mcg Flexhaler] 2 PUFF) IH SCH (18:00)
[2019-05-24] MEDS: METOPROLOL TARTRATE 25 MG TABLET PO SCH (21:25)
--- NOTE | 2019-05-24 21:55 | XCELERA REPORT ---
[address] [address] Transthoracic Echocardiogram Report Name: LORETTA OLMEDO Age: 58 yrs Gender: Male : 1960 Patient Status: Inpatient Patient Location: [address] [place], [place] [address] Study Date: 05/24/2019 03:08 PM Height: 69 in Weight: 189 lb BSA: 2.0 m2 Procedure: A two-dimensional transthoracic echocardiogram with color flow and Doppler was performed. Study Quality: Fair. Reason For Study: syncope History: syncope. Ordering Physician: ALEJANDRA CASTELLANOS Performed By: Jai Marvin Interpretation Summary The left ventricle is normal in size. There is normal left ventricular wall thickness. LV EF is 60% Doppler measurements suggest impaired left ventricular relaxation, which is associated with grade I/IV or mild diastolic dysfunction The left ventricular wall motion is normal. There is no thrombus. No ASD , VSD , or PFO seen. The right ventricle is normal in size and function. The right atrium is normal. The left atrial size is normal. There is no evidence of mitral valve prolapse. There is no vegetation seen on the mitral valve. There is no mitral valve stenosis. There is a trace amount of mitral regurgitation There is no aortic valvular vegetation. There is no aortic valve stenosis There is no LVOT obstruction. No aortic regurgitation is present. There is no tricuspid stenosis. There is a trace amount of tricuspid regurgitation Tricuspid regurgitation jet envelope not well defined to measure RV systolic pressure accurately. There is no pulmonic valvular stenosis. There is a mild amount of pulmonic regurgitation The aortic root is mildly dilated There is no pericardial effusion. MMode/2D Measurements & Calculations RVDd: 4.4 cm LVIDd: 5.4 cm FS: 28.9 % Ao root diam: 3.8 cm IVSd: 0.94 cm LVIDs: 3.8 cm EDV(Teich): Ao root area: LVPWd: 1.1 cm 141.9 ml 11.2 cm2 ESV(Teich): LA dimension: 3.4 cm 63.8 ml EF(Teich): 55.0 % LVLd ap4: 9.2 cm SV(MOD-sp4): EDV(MOD-sp4): 71.0 ml 135.0 ml LVLs ap4: 8.2 cm ESV(MOD-sp4): 64.0 ml EF(MOD-sp4): 52.6 % Doppler Measurements & Calculations MV E max alma: MV P1/2t max alma: Ao V2 max: LV V1 max P.8 cm/sec 58.7 cm/sec 111.3 cm/sec 2.8 mmHg MV A max alma: MV P1/2t: 79.4 msec Ao max P.0 mmHg LV V1 max: 68.5 cm/sec MVA(P1/2t): 2.8 cm2 83.7 cm/sec MV E/A: 0.82 MV dec slope: 216.5 cm/sec2 MV dec time: 0.21 sec PA V2 max: PI end-d alma: MV P1/2t-pr_phl: 70.1 cm/sec 90.3 cm/sec 79.4 msec PA max P.0 mmHg Left Ventricle The left ventricle is normal in size. There is normal left ventricular wall thickness. LV EF is 60%. The left ventricular ejection fraction is within normal limits. Doppler measurements suggest impaired left ventricular relaxation, which is associated with grade I/IV or mild diastolic dysfunction. The left ventricular wall motion is normal. There is no thrombus. No ASD , VSD , or PFO seen. Right Ventricle The right ventricle is normal in size and function. Atria The right atrium is normal. The left atrial size is normal. Mitral Valve There is no evidence of mitral valve prolapse. There is no vegetation seen on the mitral valve. There is no mitral valve stenosis. There is a trace amount of mitral regurgitation. Aortic Valve There is no aortic valvular vegetation. There is no aortic valve stenosis. There is no LVOT obstruction. No aortic regurgitation is present. Tricuspid Valve There is no tricuspid stenosis. There is a trace amount of tricuspid regurgitation. Tricuspid regurgitation jet envelope not well defined to measure RV systolic pressure accurately. Pulmonic Valve There is no pulmonic valvular stenosis. There is a mild amount of pulmonic regurgitation. Great Vessels The aortic root is mildly dilated. The inferior vena cava was not well visualized. Effusions There is no pericardial effusion. : ALEJANDRA CASTELLANOS Lakshmi
[2019-05-24] MEDS ORDERED: ATORVASTATIN CALCIUM 40 MG TABLET PO SCH (22:00)
[2019-05-25] MEDS: DIAZEPAM 5 MG TABLET PO SCH ×4 (03:37→11:04)
[2019-05-25] MEDS: GABAPENTIN 100 MG CAPSULE PO SCH (05:20)
[2019-05-25] MEDS: HEPARIN SOD (PORCINE) 5,000 UNIT/ML 1 ML VIAL SUBCUT SCH (05:20)
[2019-05-25] MEDS: METOPROLOL TARTRATE 25 MG TABLET PO SCH (09:54)
[2019-05-25] MEDS: DOCUSATE SODIUM 100 MG CAPSULE PO SCH (09:54)
[2019-05-25] MEDS ORDERED: LISINOPRIL 5 MG TABLET PO SCH (10:00)
[2019-05-25] MEDS ORDERED: ASPIRIN 81 MG TABLET, ENT COATED PO SCH (10:00)
[2019-05-25] MEDS ORDERED: FLUTICASONE NASAL SPRAY 50 MCG/SPRY 120 SPRAY/16 GM NASL SCH (10:00)
[2019-05-25] MEDS ORDERED: CLOPIDOGREL BISULFATE 75 MG TABLET PO SCH (10:00)
[2019-05-25] MEDS ORDERED: PANTOPRAZOLE SODIUM 40 MG TABLET.DR PO SCH (10:00)
[2019-05-25] MEDS: ACETAMINOPHEN 325 MG TABLET PO PRN (11:04)
--- NOTE | 2019-05-25 12:43 | PDOC DISCHARGE SUMMARY ---
General - Admit/Disc Date/PCP Admission Date/Primary Care Provider: 05/25/19 07:58 Discharge Date: 05/25/19 - Additional Information Resuscitation Status: Full Code Discharge Diet: As Tolerated Discharge Activity: No Driving, No Lifting Over 10 Pounds, Slowly Increase Activ ity Home Medications: Aspirin [Adult Low Dose Aspirin EC] 81 mg PO DAILY 05/24/19 Atorvastatin Calcium [Lipitor 40 mg Tablet] 40 mg PO QHS 05/24/19 Budesonide [Pulmicort 180 mcg Flexhaler] 2 puff IH BID 05/24/19 Cholecalciferol (Vitamin D3) [Vitamin D3 5000 unit Capsule] 10,000 unit PO DAILY 05/24/19 Clonazepam [Klonopin] 0.5 mg PO DAILYP PRN 05/24/19 Clopidogrel Bisulfate [Plavix 75 mg Tablet] 75 mg PO DAILY 05/24/19 Fluticasone Propionate [Flonase Nasal [place] 50 Mcg/[place] 16 gm] 2 sprays NASL DAILY 05/24/19 Gabapentin [Neurontin 100 mg Capsule] 100 mg PO Q8 05/24/19 Lisinopril [Prinivil 5 mg Tablet] 5 mg PO DAILY 05/24/19 Metoprolol Tartrate [Lopressor 25 mg Tablet] 25 mg PO Q12 05/24/19 Pantoprazole Sodium [Protonix [address] Tablet] 40 mg PO DAILY 05/24/19 Nicotine [Nicoderm 21 mg/24 Hr Transderm Patch] 1 each TD DAILYP PRN patch.td24 05/25/19 History of Present Illness History of Present Illness: LORETTA OLMEDO is a 58 year old male who presented to the emergency room complaining of an acute fall with associated injuries. He admits that while at a local detox center he got up to go to the bathroom to provide a urine specimen and blacked out. He fell striking his head, neck, shoulder and back and presented with the resultant complaint of pain in these areas. He admitted having 3 beers prior to his arrival at the emergency room on the evening of 05/23/2018. He also complained of sharp chest pain in his left chest straight through to his left shoulder blade area which occurred just prior to his blackout. He admits numerous prior similar episodes of chest pain and "blacking out". He has not identified any additional aggravating or ameliorating factors for his blackouts and falls. In the emergency room he was found to have cardiac enzymes and EKG test results which showed no evidence of acute myocardial ischemia or injury. Patient was subsequently admitted to observation status for further evaluation and treatment. Hospital Course Hospital Course: (1) Syncope and collapse The patient has numerous prior similar episodes of "blackouts" and relates that this is a fairly typical event for him. He would not of come to the hospital but for hurting his shoulder and back in the fall. He has a previous ech ocardiogram which demonstrated chronic systolic congestive heart failure and he is admittedly noncompliant with treatment. Serial cardiac enzymes negative. Echocardiogram low risk with normal EF. Carotid ultrasound no significant carotid stenosis. Discussed with Dr. Mustafa over the phone and he will follow-up with him outpatient. Patient agrees with the plan. He knows Dr. Mustafa and he with follow-up with him after discharge. (2) Closed head injury CT scan of the head was negative. (3) HTN (hypertension) Patient continued on his usual antihypertensive regimen and a cardiac diet during his hospital course. His blood pressure monitored on a regular basis throughout his hospital stay. (4) CAD (coronary artery disease) Patient treated with a cardiac diet and he continued on his usual or recommended medical regiment. Telemetry was placed during hospitalization and showed paced rhythm. (5) ETOH abuse Discontinuation of alcohol use is recommended. Patient is planning to enter rehab and hopes to have a successful recovery. Patient observed for signs of alcohol withdrawal. (6) Tobacco use disorder, severe, dependence Smoking cessation is advised and counseled briefly at bedside. A nicotine replacement patch is available for the patient's use if required. Physical Exam Vital Signs: Temp Pulse Resp BP Pulse Ox 97.5 F 68 18 132/80 H 99 05/25/19 08:17 05/25/19 08:17 05/25/19 08:17 05/25/19 08:17 05/25/19 08:17 Intake & Output 05/24/19 05/25/19 05/26/19 06:59 06:59 06:59 Intake Total 1572 Output Total 2700 Balance -1128 Weight 189 lb 6.033 oz 198 lb 3.129 oz Exam: Patient is no acute distress Alert oriented to time place person No anxiety or depression Head: atraumatic normocephalic Pupils: are equal reactive Neck: is supple and trachea is central no lymphadenopathy No pharyngeal erythema or exudates Heart: Regular rate and rhythm Lungs: clear no distress Abdomen: nontender nondistended Neurological exam: unremarkable Musculoskeletal: No joint swelling or effusion chronic lower back pain and tenderness No suicidal or homicidal ideation Results Laboratory Results: 05/23/19 20:05 05/23/19 20:05 05/23/19 05/23/19 05/24/19 20:05 20:05 03:49 Creatine Kinase 152 102 CK-MB (CK-2) Troponin I < 0.012 05/24/19 05/24/19 05/24/19 03:49 09:30 09:30 Creatine Kinase 86 CK-MB (CK-2) 0.96 0.68 Troponin I < 0.012 < 0.012 05/24/19 05/24/19 17:17 17:17 Creatine Kinase 82 CK-MB (CK-2) 0.69 Troponin I < 0.012 Impressions: Cervical Spine CT 05/23/19 19:03 IMPRESSION: No fracture or subluxation. Mild degenerative changes. Head CT 05/23/19 19:03 IMPRESSION: No acute intracranial hemorrhage or mass effect. Focal area of lucency located within the left frontal calvarium. It is uncertain whether this represents postsurgical change, and erosive lucent lesion related to metastatic disease, or a combination of both. Comparison with prior imaging from other institutions would be of benefit, especially given the provided history of malignancy. TECHNICAL DOCUMENTATION: Quality ID # 436: Final reports with documentation of one or more dose reduction techniques (e.g., Automated exposure control, adjustment of the mA and/or kV according to patient size, use of iterative reconstruction technique) copyright 2011 [employer]- All Rights Reserved Lumbar Spine X-Ray 05/23/19 19:09 IMPRESSION: No fracture. Mild degenerative changes. Shoulder X-Ray 05/23/19 19:09 IMPRESSION: No fracture. Mild degenerative changes. Chest X-Ray 05/23/19 20:50 IMPRESSION: No acute cardiopulmonary disease. Carotid Doppler Study 05/24/19 00:00 IMPRESSION: NO HEMODYNAMICALLY SIGNIFICANT STENOSIS. Qualifiers - * PATIENT BEING DISCHARGED WITH ANY OF THE FOLLOWING DIAGNOSIS: No Acute Heart Failure - Is this a Heart Failure Patient?: No
[2019-05-25 12:49] VITALS: BP 130/78
== END 2019-05-25 13:40 | disposition home or self-care (01) | DRG 312 ==
LOC: ER 17:10 → EH 05-24 01:07 → 4S 05-24 02:53 → OBSVTOIN 05-25 07:58 → INTOOBSV 05-25 07:58
PROVIDERS: ADMIT Emergency Medicine; ATTEND Emergency Medicine
DX: R55 Syncope and collapse (principal); S09.90XA Unspecified injury of head, initial encounter; X58.XXXA Exposure to other specified factors, initial encounter; I25.10 Atherosclerotic heart disease of native coronary artery without angina pectoris; F17.210 Nicotine dependence, cigarettes, uncomplicated; E78.5 Hyperlipidemia, unspecified; I10 Essential (primary) hypertension; Y92.193 Bedroom in other specified residential institution as the place of occurrence of the external cause; Z60.2 Problems related to living alone; E78.00 Pure hypercholesterolemia, unspecified; F10.20 Alcohol dependence, uncomplicated; Y90.3 Blood alcohol level of 60-79 mg/100 ml; I25.2 Old myocardial infarction; Z91.19 Patient's noncompliance with other medical treatment and regimen; Z79.899 Other long term (current) drug therapy; Z95.5 Presence of coronary angioplasty implant and graft; Z95.0 Presence of cardiac pacemaker; Z82.49 Family history of ischemic heart disease and other diseases of the circulatory system
CPT/HCPCS: 36415; 70450; 71046; 72110; 72125; 80048; 80076; 80307; 81001; 82550; 82553; 83735; 84484; 85025; 85610; 85730; 93005; 93010; 93306; 93880; 94640; 96374; 99285; G0378; J2270; J2300; J3230; J3360; J3490; J7614; L0120

== ENCOUNTER 2019-05-26 22:11 | Emergency (ER) | payer MEDICAID ==
[2019-05-26 22:36] LABS: ABSOLUTE LYMPHOCYTES (AUTO) 2.2 10^3/uL (0.5-4.7); ABSOLUTE MONOCYTES (AUTO) 0.4 10^3/uL (0.1-1.4); ABSOLUTE NEUT (AUTO) 5.1 10^3/uL (1.7-8.2); BASOPHILS % (AUTO) 0.3 % (0-2); EOSINOPHILS % (AUTO) 0.3 % (0-6); HEMATOCRIT 46.7 % (37.9-51.0); HEMOGLOBIN 15.9 g/dL (13.5-17.0); LYMPHOCYTES % (AUTO) 28.9 % (13-45); MEAN CORPUSCULAR HEMOGLOBIN 33.2 pg (27.0-33.4); MEAN CORPUSCULAR HGB CONC 34.1 g/dL (32.0-36.0); MEAN CORPUSCULAR VOLUME 98 fl (80-97); MONOCYTES % (AUTO) 4.5 % (3-13); PLATELET COUNT 206 10^3/uL (150-450); RED BLOOD COUNT 4.79 10^6/uL (4.35-5.55); RED CELL DISTRIBUTION WIDTH 13.1 % (11.5-14.0); TOTAL CELLS COUNTED % (AUTO) 100 %; WHITE BLOOD COUNT 7.8 10^3/uL (4.0-10.5)
[2019-05-26 22:51] LABS: INTERNATIONAL RATION (INR) 1.03; PROTHROMBIN TIME 13.5 SEC (11.4-15.4)
[2019-05-26 22:54] LABS: ALBUMIN 4.3 g/dL (3.5-5.0); ALKALINE PHOSPHATASE 57 U/L (38-126); ANION GAP 13 (5-19); ASPARTATE AMINO TRANSFERASE 44 U/L (17-59); BILIRUBIN,DIRECT 0.1 mg/dL (0.0-0.4); BILIRUBIN,TOTAL 0.6 mg/dL (0.2-1.3); BLOOD UREA NITROGEN 10 mg/dL (7-20); CALCIUM 9.6 mg/dL (8.4-10.2); CARBON DIOXIDE 23 mmol/L (22-30); CHLORIDE 109 mmol/L (98-107); CREATINE KINASE 205 U/L (55-170); GLUCOSE 101 mg/dL (75-110); POTASSIUM 4.1 mmol/L (3.6-5.0)
[2019-05-26 23:05] LABS: CREATINE KINASE MB 1.26 ng/mL (<4.55)
[2019-05-26 23:06] LABS: TROPONIN I < 0.012 ng/mL
--- NOTE | 2019-05-26 23:41 | RADIOLOGY REPORT (SQ) ---
EXAM DESCRIPTION: XR CHEST 1 VIEW COMPLETED DATE/TME: 05/26/2019 00:00 CLINICAL HISTORY: 58 years, Male, chest pain COMPARISON: 05/23/2019 chest NUMBER OF VIEWS: 1 TECHNIQUE: Portable chest LIMITATIONS: None. FINDINGS: Heart size is normal. Left-sided pacing device. Underlying COPD. Osteopenia. No pneumothorax IMPRESSION: COPD. Lungs are clear copyright 2010 [facility] [employer]- All Rights Reserved
[2019-05-27] MEDS ORDERED: NALBUPHINE HCL INJ 10 MG/1 ML AMPULE INJ ONE (00:05)
[2019-05-27] MEDS ORDERED: DIPH/PERTUSS(ACELL)/TETANUS VAC/PF 0.5 ML SYR (>=10YO) IM ONE (01:44)
[2019-05-27] MEDS ORDERED: ALBUTEROL SULFATE 0.083% NEB 2.5 MG/3 ML AMPUL NEB ONE (01:44)
--- NOTE | 2019-05-27 01:44 | ER Document Report ---
ED General - General TRAVEL OUTSIDE OF THE [place]. IN LAST 30 DAYS: No <AKASH GALEANA - Last Filed: 05/27/19 02:12> <PARTHA YUAN - Last Filed: 05/27/19 13:51> - General Chief Complaint: Chest Pain > 30 Stated Complaint: CHEST PAIN Time Seen by Provider: 05/26/19 23:41 Primary Care Provider: CRISTY HERNANDEZ MD [Primary Care Provider] - Follow up as needed Notes: 58-year-old male presents emergency department complaining of left-sided chest pain that has been going on all day that caused him to blackout around 4 5 PM tonight. Patient states that after that fall his chest pain worsened. States that it is sharp stabbing pain that is not associated with any shortness of breath but it does worsen with a deep breath. Patient states he has had these episodes before, he is not sure what is causing this pain or these episodes of blacking out. He cannot recall the last time he had his heart checked, but he is concerned because he states he fell directly on top of his AICD/pacer. Admits to having has several beers today. (AKASH GALEANA) - Related Data Allergies/Adverse Reactions: No Known Allergies Allergy (Verified 02/03/19 00:02) Past Medical History - General Information source: Patient, [facility] Records - Social History Smoking Status: Current Every Day Smoker Chew tobacco use (# tins/day): No Frequency of alcohol use: Heavy Drug Abuse: Prescription drugs - cocaine Family History: Reviewed & Not Pertinent Patient has suicidal ideation: No Patient has homicidal ideation: No - Past Medical History Cardiac Medical History: Reports: Hx Congestive Heart Failure - Left ventricular ejection fraction 40 to 45% in 2014, Hx Coronary Artery Disease, Hx Heart Attack, Hx Hypercholesterolemia, Hx Hypertension Denies: Hx Atrial Fibrillation Pulmonary Medical History: Reports: Hx COPD - not on home o2, Hx Pneumonia Denies: Hx Asthma Neurological Medical History: Denies: Hx Seizures Endocrine Medical History: Denies: Hx Diabetes Mellitus Type 1, Hx Diabetes Mellitus Type 2, Hx Hyperthyroidism, Hx Hypothyroidism Renal/ Medical History: Reports: Hx Kidney Stones - 1983. Denies: Hx Peritoneal Dialysis GI Medical History: Denies: Hx Cirrhosis, Hx Crohn's Disease, Hx Hepatitis, Hx Ulcerative Colitis Musculoskeletal Medical History: Denies Hx Arthritis, Denies Hx Gout Skin Medical History: Denies Hx Eczema, Denies Hx Psoriasis Psychiatric Medical History: Denies: Hx Depression Infectious Medical History: Denies: Hx Hepatitis Past Surgical History: Reports: Hx Cardiac Catheterization - stent x2, Hx Cardiac Surgery - pacemaker, Hx Coronary Stent, Hx Pacemaker - Immunizations Immunizations up to date: Yes Hx Diphtheria, Pertussis, Tetanus Vaccination: Yes Hx Pneumococcal Vaccination: 06/05/14 <AKASH GALEANA - Last Filed: 05/27/19 02:12> Review of Systems - Review of Systems Constitutional: No symptoms reported Cardiovascular: See HPI, Chest pain, Syncope Respiratory: See HPI, Hurts to breathe Gastrointestinal: No symptoms reported Neurological/Psychological: See HPI, Lost consciousness -: Yes All other systems reviewed and negative <AKASH GALEANA - Last Filed: 05/27/19 02:12> Physical Exam - Vital signs Interpretation: Normal <AKASH GALEANA - Last Filed: 05/27/19 02:12> - Vital signs Vitals: Temp Resp BP Pulse Ox 98.4 F 20 129/80 H 92 05/26/19 22:12 05/26/19 22:12 05/26/19 22:12 05/26/19 22:12 - Notes Notes: GENERAL: Awake, alert, appears somewhat irritated, mildly intoxicated. HEAD: Normocephalic, atraumatic EYES: Pupils equal, round and reactive to light, extraocular movements intact. ENT: Oral mucosa moist, tongue midline. NECK: Full range of motion, supple, trachea midline. LUNGS: Mild expiratory wheezes, no rales or rhonchi, no respiratory distress, complains of pain on palpation to the anterior axillary line on the left chest wall, no signs of trauma. Pacemaker defibrillator is embedded in good position on the left side of the chest, no hematoma noted. HEART: Regular rate and rhythm, no murmurs, gallops, rubs. ABDOMEN: Soft, nontender, nondistended, bowel sounds present in all 4 quadrants. EXTREMITIES: Moves all 4 extremities spontaneously, no edema, radial and dorsalis pedis pulses 2/4 bilaterally. No cyanosis. NEUROLOGICAL: Alert and oriented x3, normal speech, biceps and patellar DTRs 2+ bilaterally. Mildly intoxicated. PSYCH: Normal mood, normal affect. SKIN: Warm, Dry, normal turgor, superficial skin tear to the dorsal aspect of the left hand, 2 mm. (AKASH GALEANA) Course - Laboratory Result Diagrams: 05/26/19 21:58 05/26/19 21:58 <AKASH GALEANA - Last Filed: 05/27/19 02:12> - Laboratory Result Diagrams: 05/26/19 21:58 05/26/19 21:58 <PARTHA YUAN - Last Filed: 05/27/19 13:51> - Re-evaluation Re-evalutation: 05/27/19 01:45 CBC unremarkable, coags normal, CMP grossly unremarkable, initial troponin negative, serum alcohol is 209, chest x-ray shows pacemaker in good position. I did review old records in the computer, patient was just admitted here on the , was seen by cardiology, had echocardiogram that was normal, is supposed to follow-up with cardiology as an outpatient. Cardiac enzymes continued to be normal. The only piece of the work-up that I would like to continue tonight is to have his pacemaker interrogated. We have spoken with the staff at [facility] who states that the rep is an emergency case right now. They are aware that we would like them to come and interrogate his pacemaker as soon as possible. It is a [employer] pacemaker. They will come as soon as they are available. Patient's pain in the hospital was successfully treated with Nubain, I find it very unlikely that his pain is coming from ischemic heart disease particularly given the recent negative work-up that he had. Patient was given a dose of Nubain here as well. We will continue to wait to make sure that in this patient who has had multiple episodes of blacking out spells has a normal interrogation of his pacemaker. If this is normal then patient will be able to be discharged home and follow-up with Dr. Mustafa as recommended by Dr. Mustafa when he was seen in the hospital on the and of this month. No evidence of rib fractures. 05/27/19 02:[address] Easley, he will continue to await the arrival of the [employer] rep to interrogate the pacemaker. If this shows no arrhythmias or malfunctions patient will be able to be discharged home as he is already otherwise had a thorough cardiac work-up. Patient has been written for Lidoderm patches. This patient may end up being signed out to the 6 AM physician as the [employer] rep does not think they will be able to get down here until the morning. Patient will remain on the playground monitor until then. (AKASH GALEANA) - Vital Signs Vital signs: Temp Pulse Resp BP Pulse Ox 97.5 F 11 L 149/99 H 94 05/27/19 07:28 05/27/19 13:31 05/27/19 13:31 05/27/19 13:31 - Laboratory Laboratory results interpreted by me: 05/26/19 05/26/19 21:58 21:58 MCV 98 H Chloride 109 H Creatine Kinase 205 H - EKG Interpretation by Me Additional EKG results interpreted by me: 05/27/19 01:47 EKG shows an atrially sensed ventricularly paced complex at a rate of 84, no evidence of STEMI, he does have some [place] beats, there are some PVCs, no significant change aside from increased PVCs compared to prior EKG on 05/23/2019 per my interpretation. (AKASH GALEANA) Discharge <AKASH GALEANA - Last Filed: 05/27/19 02:12> <PARTHA YUAN - Last Filed: 05/27/19 13:51> - Discharge Clinical Impression: Syncope and collapse, ETOH abuse, Tobacco use disorder, severe, dependence Contusion of rib on left side Qualifiers: Encounter type: initial encounter Qualified Code(s): S20.212A - Contusion of left front wall of thorax, initial encounter Condition: Stable Disposition: HOME, SELF-CARE Additional Instructions: Chest Pain of Unclear Cause The exact cause of your chest pain isn't clear. Fortunately, there is no evidence of a dangerous medical condition. Further testing may be required to find the source of the pain. Most often, we find that this pain is coming from the chest wall -- the muscles or rib joints in the chest. But chest pain can come from the lung and lung lining, the esophagus, the heart valves or heart lining, and even the stomach or gallbladder. Rest. Eat lightly until the pain is gone. We may prescribe medicine for pain and inflammation. You should call the physician immediately if the pain radiates to the shoulder, jaw or arms; if you start to run a fever or develop a cough; or if you develop shortness of breath, or other new or alarming symptoms. Use the Lidoderm patches as prescribed for pain control. Follow-up with your java user interface developer in [place] or with a java user interface developer here in [place]. RETURN TO THE EMERGENCY ROOM IF ANY NEW OR WORSENING SYMPTOMS. Prescriptions: Lidocaine [Lidoderm 5% (700 mg) Transdermal Patch] 1 patch TP DAILY #20 adh..patch
[2019-05-27] MEDS ORDERED: NALBUPHINE HCL INJ 10 MG/1 ML AMPULE IV ONE (12:46)
[2019-05-27 13:36] VITALS: BP 149/99
--- NOTE | 2019-05-27 17:40 | EKG REPORT ---
SEVERITY:- ABNORMAL ECG - ATRIAL-SENSED VENTRICULAR-PACED COMPLEXES NONSPECIFIC IVCD WITH LAD : Confirmed by: Kumar Bunn MD 27-May-2019 17:39:50
== END 2019-05-27 14:01 | disposition home or self-care (01) ==
LOC: ER 22:11
DX: S20.212A Contusion of left front wall of thorax, initial encounter (principal); R07.1 Chest pain on breathing; S61.412A Laceration without foreign body of left hand, initial encounter; W19.XXXA Unspecified fall, initial encounter; F10.129 Alcohol abuse with intoxication, unspecified; I49.3 Ventricular premature depolarization; R55 Syncope and collapse; F14.10 Cocaine abuse, uncomplicated; F17.200 Nicotine dependence, unspecified, uncomplicated; I25.10 Atherosclerotic heart disease of native coronary artery without angina pectoris; I10 Essential (primary) hypertension; I25.2 Old myocardial infarction; J44.9 Chronic obstructive pulmonary disease, unspecified; Z45.018 Encounter for adjustment and management of other part of cardiac pacemaker; Z95.810 Presence of automatic (implantable) cardiac defibrillator; Z95.5 Presence of coronary angioplasty implant and graft
CPT/HCPCS: 93005; 36415; 82553; 80307; 82550; 85025; 85610; 80053; 84484; 71045; 90715; 93010; J2300

== ENCOUNTER 2019-06-13 22:00 | Emergency (ER) | payer MEDICAID ==
[2019-06-13 23:09] LABS: ABSOLUTE LYMPHOCYTES (AUTO) 1.3 10^3/uL (0.5-4.7); ABSOLUTE MONOCYTES (AUTO) 0.4 10^3/uL (0.1-1.4); ABSOLUTE NEUT (AUTO) 7.8 10^3/uL (1.7-8.2); BASOPHILS % (AUTO) 0.3 % (0-2); EOSINOPHILS % (AUTO) 0.1 % (0-6); HEMATOCRIT 48.3 % (37.9-51.0); HEMOGLOBIN 16.5 g/dL (13.5-17.0); LYMPHOCYTES % (AUTO) 13.9 % (13-45); MEAN CORPUSCULAR HEMOGLOBIN 33.3 pg (27.0-33.4); MEAN CORPUSCULAR HGB CONC 34.1 g/dL (32.0-36.0); MEAN CORPUSCULAR VOLUME 98 fl (80-97); MONOCYTES % (AUTO) 3.7 % (3-13); PLATELET COUNT 251 10^3/uL (150-450); RED BLOOD COUNT 4.94 10^6/uL (4.35-5.55); RED CELL DISTRIBUTION WIDTH 13.1 % (11.5-14.0); TOTAL CELLS COUNTED % (AUTO) 100 %; WHITE BLOOD COUNT 9.5 10^3/uL (4.0-10.5)
[2019-06-13 23:17] LABS: ALBUMIN 4.7 g/dL (3.5-5.0); ALKALINE PHOSPHATASE 56 U/L (38-126); ANION GAP 14 (5-19); ASPARTATE AMINO TRANSFERASE 26 U/L (17-59); BILIRUBIN,DIRECT 0.1 mg/dL (0.0-0.4); BILIRUBIN,TOTAL 0.7 mg/dL (0.2-1.3); BLOOD UREA NITROGEN 10 mg/dL (7-20); CALCIUM 9.6 mg/dL (8.4-10.2); CARBON DIOXIDE 22 mmol/L (22-30); CHLORIDE 107 mmol/L (98-107); CREATINE KINASE 79 U/L (55-170); GLUCOSE 84 mg/dL (75-110); POTASSIUM 4.3 mmol/L (3.6-5.0); TOTAL PROTEIN 7.6 g/dL (6.3-8.2)
[2019-06-13 23:32] LABS: TROPONIN I < 0.012 ng/mL
--- NOTE | 2019-06-13 23:45 | RADIOLOGY REPORT (SQ) ---
EXAM DESCRIPTION: XR CHEST 1 VIEW COMPLETED DATE/TME: 06/13/2019 22:54 CLINICAL HISTORY: 58 years, Male, chest pain COMPARISON: Prior study from 05/26/2019 NUMBER OF VIEWS: One TECHNIQUE: Single frontal view of the chest was obtained portably LIMITATIONS: None. FINDINGS: Left subclavian approach cardiac pacer is unchanged in position. Cardiac and mediastinal contours are stable. Lungs are clear. No pleural effusion or pneumothorax. IMPRESSION: No acute disease. copyright 2010 [employer]- All Rights Reserved
--- NOTE | 2019-06-13 23:55 | ER Document Report ---
ED Cardiac - General Chief Complaint: Chest Pain Stated Complaint: CHEST PAIN Time Seen by Provider: 06/13/19 23:55 Primary Care Provider: CRISTY HERNANDEZ MD [Primary Care Provider] - Follow up as needed Mode of Arrival: Ambulatory Information source: Patient Notes: HISTORY OF PRESENT ILLNESS: Patient is a 58-year-old male with a past medical history of chronic alcohol abuse and coronary artery disease who presents with alcohol intoxication and report of chest burning. Patient reports that he is homeless and would like to stay for alcohol detoxification, however every time he drinks heavily he has chest burning. Onset: Prior to arrival Provocation: Alcohol intake Quality: Burning Radiation: None Severity: Mild Timing: Constant SI/HI: None Hallucinations: None Current therapist: None Associated symptoms: Denies fevers or chills, no cough congestion, no shortness of breath, no swelling of extremities REVIEW OF SYSTEMS: CONSTITUTIONAL : Denies fever or chills, no sweats. Denies recent illness. EENT: Denies eye, ear, throat, or mouth pain or symptoms. Denies nasal or sinus congestion. CARDIOVASCULAR: Positive for chest burning. RESPIRATORY: Denies cough, cold, or chest congestion. Denies shortness of breath, difficulty breathing, or wheezing. GASTROINTESTINAL: Denies abdominal pain. Denies nausea, vomiting, or diarrhea. Denies constipation. GENITOURINARY: Denies difficulty urinating, painful urination, burning, frequency, or blood in urine. MUSCULOSKELETAL: Denies neck or back pain or joint pain or swelling. SKIN: Denies rash or skin lesions. HEMATOLOGIC : Denies easy bruising or bleeding. LYMPHATIC: Denies swollen, enlarged glands. NEUROLOGICAL: Denies altered mental status or loss of consciousness. Denies headache. Denies weakness or paralysis or loss of use of either side. Denies problems with gait or speech. Denies sensory or motor loss. PSYCHIATRIC: Positive for chronic alcohol abuse. Denies suicidal/homicidal thoughts. Denies anxiety or stress or depression. All other systems reviewed and negative. PHYSICAL EXAMINATION: GENERAL: Disheveled-appearing, well-nourished and in no acute distress. HEAD: Atraumatic, normocephalic. No scalp deformity, depression, or crepitance. EYES: Pupils are 3 mm and equal/round/reactive to light, extraocular movements intact, sclera anicteric, conjunctiva are normal. ENT: Nares patent bilaterally, oropharynx clear without exudates or palatal petechia. Moist mucous membranes. No tonsil hypertrophy. NECK: Normal range of motion, supple without lymphadenopathy. LUNGS: Breath sounds present, equal, and clear to auscultation bilaterally. No wheezes, rales, or rhonchi. HEART: Regular rate and rhythm without murmurs, rubs, or gallops. 2+ peripheral pulses. Normal capillary refill. ABDOMEN: Soft, nontender, nondistended. Normoactive bowel sounds. No guarding, no rebound. No masses appreciated. BACK: Normal contour, no midline tenderness. Rectal exam deferred. GENITAL/PELVC: Deferred. EXTREMITIES: Normal range of motion, no pitting or edema. No cyanosis. NEUROLOGICAL: No focal neurological deficits. Moves all extremities spontaneously and on command. PSYCH: Normal mood, normal affect. No suicidal thoughts/ideations. No homicidal thoughts/ideations. No hallucinations. SKIN: Warm, dry, normal turgor, no rashes or lesions noted. ASSESSMENT AND PLAN: This patient is a 58-year-old male who presents with alcohol intoxication secondary to chronic alcoholism with a report of chest burning, most likely secondary to esophagitis versus gastritis. 1. Will obtain labs, 2 sets of cardiac enzymes, and reassess the patient after IV fluids and Ativan. 2. Will observe the patient overnight. TRAVEL OUTSIDE OF THE [place] IN LAST 30 DAYS: No - HPI Patient complains to provider of: Other - "My chest is burning" Use of: Alcohol Was the onset of pain: Sudden Is the pain a: Chronic problem Chest pain location: Substernal Quality of pain: Burning Chest pain radiation location: None Severity now: Mild Severity at worst: Mild Pain level currently: Denies Chest pain precipitating factors: Alcohol intake Cardiac risk factors: Hypertension, Hx [place] Positive cardiac history: Yes Associated symptoms: Other - Itching, jitteriness Exacerbated by: Emotional stress, Other - Alcohol intake Relieved by: Nothing Similar symptoms previously: Yes Recently seen / treated by doctor: No - Related Data Allergies/Adverse Reactions: No Known Allergies Allergy (Verified 02/03/19 00:02) Past Medical History - General Information source: Patient - Social History Smoking Status: Current Every Day Smoker Chew tobacco use (# tins/day): No Frequency of alcohol use: Heavy Drug Abuse: Cocaine, Marijuana Lives with: Alone, Homeless Family History: Reviewed & Not Pertinent Patient has suicidal ideation: No Patient has homicidal ideation: No - Past Medical History Cardiac Medical History: Reports: Hx Congestive Heart Failure - Left ventricular ejection fraction 40 to 45% in 2014, Hx Coronary Artery Disease, Hx Heart Attack, Hx Hypercholesterolemia, Hx Hypertension Denies: Hx Atrial Fibrillation Pulmonary Medical History: Reports: Hx COPD - not on home o2, Hx Pneumonia Denies: Hx Asthma EENT Medical History: Reports: None Neurological Medical History: Reports: None. Denies: Hx Seizures Endocrine Medical History: Reports: None. Denies: Hx Diabetes Mellitus Type 1, Hx Diabetes Mellitus Type 2, Hx Hyperthyroidism, Hx Hypothyroidism Renal/ Medical History: Reports: Hx Kidney Stones - 1983. Denies: Hx Peritoneal Dialysis Malignancy Medical History: Reports None GI Medical History: Reports: None. Denies: Hx Cirrhosis, Hx Crohn's Disease, Hx Hepatitis, Hx Ulcerative Colitis Musculoskeletal Medical History: Reports None, Denies Hx Arthritis, Denies Hx Gout Skin Medical History: Reports None, Denies Hx Eczema, Denies Hx Psoriasis Psychiatric Medical History: Reports: None Denies: Hx Depression Traumatic Medical History: Reports: None Infectious Medical History: Reports: None. Denies: Hx Hepatitis Past Surgical History: Reports: Hx Cardiac Catheterization - stent x2, Hx Cardiac Surgery - pacemaker, Hx Coronary Stent, Hx Pacemaker - Immunizations Immunizations up to date: Yes Hx Diphtheria, Pertussis, Tetanus Vaccination: Yes Hx Pneumococcal Vaccination: 06/05/14 Review of Systems - Review of Systems Constitutional: No symptoms reported EENT: No symptoms reported Cardiovascular: See HPI, Chest pain Respiratory: No symptoms reported Gastrointestinal: No symptoms reported Genitourinary: No symptoms reported Male Genitourinary: No symptoms reported Musculoskeletal: No symptoms reported Skin: No symptoms reported Hematologic/Lymphatic: No symptoms reported Neurological/Psychological: See HPI, Other - Alcohol intoxication -: Yes All other systems reviewed and negative Physical Exam - Vital signs Vitals: Resp BP Pulse Ox 11 L 108/73 97 06/13/19 22:21 06/13/19 22:21 06/13/19 22:21 Interpretation: Normal Course - Re-evaluation Re-evalutation: 06/14/19 06:25 Patient has been observed overnight and has been medically cleared. Will discharge the patient home with strict return precautions and follow-up with primary care. All results were explained to and discussed with the patient, and all questions addressed and answered. The patient voices both understanding and agreeing with the plan. - Vital Signs Vital signs: Temp Pulse Resp BP Pulse Ox 22 H 111/81 97 06/14/19 05:30 06/14/19 05:30 06/14/19 03:01 - Laboratory Result Diagrams: 06/13/19 22:50 06/13/19 22:50 Laboratory results interpreted by me: 06/13/19 22:50 MCV 98 H Seg Neutrophils % 82.0 H - Diagnostic Test Radiology reviewed: Image reviewed, Reports reviewed - EKG Interpretation by Me EKG shows normal: Sinus rhythm Rate: Normal Rhythm: Other - Dual paced rhythm [place]/QRS: LBBB Voltage: No: Increased voltage, Consistant with LVH, Decreased voltage, Throughout, Limb leads P Waves: No: ASHLEY, LAE, Absent, AV Dissociation, Other Heart block present: No: 1st Degree, Mobitz 1, Mobitz 2, CHB (3rd degree block) When compared to previous EKG there are: No significant change Discharge - Discharge Clinical Impression: Chronic alcohol abuse Condition: Good Disposition: HOME, SELF-CARE Instructions: Chronic Alcoholism ([facility]) Additional Instructions: You have been evaluated in the Emergency Department for chronic alcohol abuse. While here, you had blood work that was normal and improved after medications, and it is now safe to be discharged home. Please follow-up with your primary physician as instructed in one week to be rechecked. Return to the Emergency Department if you experience worsening symptoms, confusion, trouble walking, or any other concerning symptoms. Prescriptions: Chlordiazepoxide HCl [Librium 25 mg Capsule] 1 cap PO ASDIR 9 Days #18 capsule Referrals: CRISTY HERNANDEZ MD [Primary Care Provider] - Follow up as needed Print Language: Arabic
[2019-06-14] MEDS ORDERED: LORAZEPAM INJ 2 MG/1 ML VIAL IV ONE (02:04)
[2019-06-14 06:35] VITALS: BP 113/76
--- NOTE | 2019-06-14 07:36 | EKG REPORT ---
SEVERITY:- ABNORMAL ECG - A-V DUAL-PACED RHYTHM WITH SOME INHIBITION : Confirmed by: Kumar Bunn MD 14-Jun-2019 07:36:05
== END 2019-06-14 06:37 | disposition home or self-care (01) ==
LOC: ER 22:00
DX: F10.229 Alcohol dependence with intoxication, unspecified (principal); R07.9 Chest pain, unspecified; I25.10 Atherosclerotic heart disease of native coronary artery without angina pectoris; I25.2 Old myocardial infarction; I50.9 Heart failure, unspecified; I11.0 Hypertensive heart disease with heart failure; J44.9 Chronic obstructive pulmonary disease, unspecified
CPT/HCPCS: 93005; 36415; 82553; 80307; 82550; 85025; 80053; 84484; 71045; 93010; J2060; 96374; 99285

== ENCOUNTER 2019-11-10 13:26 | Emergency (ER) | payer MEDICAID, OTHER ==
[2019-11-10 14:26] LABS: ABSOLUTE LYMPHOCYTES (AUTO) 1.4 10^3/uL (0.5-4.7); ABSOLUTE MONOCYTES (AUTO) 0.5 10^3/uL (0.1-1.4); ABSOLUTE NEUT (AUTO) 3.3 10^3/uL (1.7-8.2); BASOPHILS % (AUTO) 0.2 % (0-2); EOSINOPHILS % (AUTO) 0.1 % (0-6); HEMATOCRIT 46.6 % (37.9-51.0); HEMOGLOBIN 16.5 g/dL (13.5-17.0); LYMPHOCYTES % (AUTO) 26.1 % (13-45); MEAN CORPUSCULAR HEMOGLOBIN 34.2 pg (27.0-33.4); MEAN CORPUSCULAR HGB CONC 35.5 g/dL (32.0-36.0); MEAN CORPUSCULAR VOLUME 96 fl (80-97); MONOCYTES % (AUTO) 9.8 % (3-13); PLATELET COUNT 170 10^3/uL (150-450); RED BLOOD COUNT 4.84 10^6/uL (4.35-5.55); RED CELL DISTRIBUTION WIDTH 12.6 % (11.5-14.0); SEGMENTED NEUTROPHILS % (AUTO) 63.8 % (42-78); TOTAL CELLS COUNTED % (AUTO) 100 %; WHITE BLOOD COUNT 5.2 10^3/uL (4.0-10.5)
[2019-11-10 14:39] LABS: ALBUMIN 4.3 g/dL (3.5-5.0); ALKALINE PHOSPHATASE 57 U/L (38-126); ANION GAP 12 (5-19); ASPARTATE AMINO TRANSFERASE 32 U/L (17-59); BILIRUBIN,TOTAL 0.8 mg/dL (0.2-1.3); BLOOD UREA NITROGEN 17 mg/dL (7-20); CARBON DIOXIDE 22 mmol/L (22-30); CHLORIDE 104 mmol/L (98-107); CREATINE KINASE 305 U/L (55-170); GLUCOSE 147 mg/dL (75-110); POTASSIUM 4.2 mmol/L (3.6-5.0); TOTAL PROTEIN 7.1 g/dL (6.3-8.2)
--- NOTE | 2019-11-10 14:44 | EKG REPORT ---
SEVERITY:- ABNORMAL ECG - LEFT BUNDLE BRANCH BLOCK CORONARY SINUS RHYTHM PROBABLE INFERIOR TN : Confirmed by: Kumar Bunn MD 10-Nov-2019 14:44:19
[2019-11-10 14:50] LABS: CREATINE KINASE MB 1.86 ng/mL (<4.55); TROPONIN I < 0.012 ng/mL
[2019-11-10] MEDS ORDERED: NITROGLYCERIN 0.4 MG/TAB 25 TAB/BOTTLE SL PRN (16:04)
[2019-11-10] MEDS ORDERED: ASPIRIN 81 MG TABLET, CHEWABLE PO ONE (16:04)
[2019-11-10] MEDS ORDERED: PANTOPRAZOLE SODIUM 40 MG VIAL IV ONE (16:11)
--- NOTE | 2019-11-10 16:44 | RADIOLOGY REPORT (SQ) ---
EXAM DESCRIPTION: CHEST 2 VIEWS COMPLETED DATE/TIME: 11/10/2019 REASON FOR STUDY: cough COMPARISON: 06/13/2019. CTA chest, 12/27/2018 EXAM PARAMETERS: NUMBER OF VIEWS: two views TECHNIQUE: Digital Frontal and Lateral radiographic views of the chest acquired. RADIATION DOSE: NA LIMITATIONS: none FINDINGS: LUNGS AND PLEURA: Lungs are hyperinflated. No focal consolidation or pleural effusion. N o pneumothorax. MEDIASTINUM AND HILAR STRUCTURES: No masses or contour abnormalities. HEART AND VASCULAR STRUCTURES: Heart normal size. No evidence for failure. BONES: No acute findings. HARDWARE: Left infraclavicular pacemaker with intact lead wires unchanged. 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 IMPRESSION: No acute cardiopulmonary disease. Hyperinflated lungs which can be seen with obstructiv e lung disease. TECHNICAL DOCUMENTATION: JOB ID: [id number] 2010 [employer]- All Rights Reserved Reading location - IP/workstation name: [email or web address]
--- NOTE | 2019-11-10 16:52 | RADIOLOGY REPORT (SQ) ---
EXAM DESCRIPTION: CT HEAD WITHOUT COMPLETED DATE/TIME: 11/10/2019 4:41 pm REASON FOR STUDY: syncope COMPARISON: 05/23/2019 TECHNIQUE: Axial images acquired through the brain without intravenous contrast. Images reviewed wit h bone, brain and subdural windows. Images stored on PACS. All CT scanners at this facility use dose modulation, iterative reconstruction, and/or weight based d osing when appropriate to reduce radiation dose to as low as reasonably achievable (ALARA). [facility]: Dose Right [facility]: CareDose [facility]: Dose Right [facility]: Teradose 4D [facility]: Smart SiteWit RADIATION DOSE: CT Rad equipment meets quality standard of care and radiation dose reduction techniq ues were employed. CTDIvol: 53.2 mGy. DLP: 1044 mGy-cm.. LIMITATIONS: None. FINDINGS: VENTRICLES: Normal size and contour. CEREBRUM: No masses. No hemorrhage. No midline shift. Age appropriate white matter. No evidence for a cute infarction. CEREBELLUM: No masses. No hemorrhage. No alteration of density. No evidence for acute infarction. EXTRA-AXIAL SPACES: No fluid collections. ORBITS AND GLOBE: No intra- or extraconal masses. Normal contour of globe without masses. CALVARIUM: No fracture. Postprocedural changes in the left frontal bone. PARANASAL SINUSES: No fluid or mucosal thickening. SOFT TISSUES: No mass or hematoma. OTHER: No other significant finding. IMPRESSION: NO ACUTE INTRACRANIAL FINDINGS. EVIDENCE OF ACUTE STROKE: NO. TECHNICAL DOCUMENTATION: JOB ID: [id number] [id number] Quality ID # [id number]: Final reports with documentation of one or more dose reduction techniques (e.g., Au tomated exposure control, adjustment of the mA and/or kV according to patient size, use of iterative reconstruction technique) 2010 [employer]- All Rights Reserved Reading location - IP/workstation name: [email or web address]
[2019-11-10] MEDS ORDERED: NORMAL SALINE 1000 ML 1,000 ML IV ONE (16:54)
[2019-11-10] MEDS ORDERED: CEFTRIAXONE 1 GM/D5W RTU 1 GM/50 ML RTUPB IV ONE (16:55)
[2019-11-10] MEDS ORDERED: KETOROLAC TROMETHAMINE INJ/PF 30 MG/1 ML SDV IV ONE (18:22)
[2019-11-10 20:14] VITALS: BP 114/73
--- NOTE | 2019-11-11 14:28 | ER Document Report ---
Entered by SARI DONALDSON SCRIBE 11/10/19 1601 Acting as scribe for:DAVIE PAIZ MD ED Cardiac - General Chief Complaint: Chest Pain Stated Complaint: CHEST PAIN Time Seen by Provider: 11/10/19 15:26 Primary Care Provider: SKYLER MONAHAN FNP-C [Primary Care Provider] - Follow up as needed Information source: Patient Notes: This 59-year-old male patient presents to the emergency department today with complaints of a 3-day history of chest pain that comes and goes. Patient also has multiple other symptoms including having a syncopal event yesterday. Patient states he does not know how long he was out, stating he just remembers waking up on the floor. Patient did not seek medical care at that time. Patient goes on to mention that he is essentially homeless, stating that he "lives in someone's shed behind a house that has no electricity or running water". Patient also complains of a cough, fevers, chills, nausea, vomiting, and diarrhea. Patient states he coughed up some blood this morning. Patient is on Plavix. TRAVEL OUTSIDE OF THE [place] IN LAST 30 DAYS: No - Related Data Allergies/Adverse Reactions: No Known Allergies Allergy (Verified 02/03/19 00:02) Past Medical History - General Information source: Patient - Social History Smoking Status: Current Every Day Smoker Cigarette use (# per day): Yes Chew tobacco use (# tins/day): No Frequency of alcohol use: Social Drug Abuse: None Family History: Reviewed & Not Pertinent Patient has suicidal ideation: No Patient has homicidal ideation: No - Past Medical History Cardiac Medical History: Reports: Hx Congestive Heart Failure - Left ventricular ejection fraction 40 to 45% in 2014, Hx Coronary Artery Disease, Hx Heart Attack, Hx Hypercholesterolemia, Hx Hypertension Denies: Hx Atrial Fibrillation Pulmonary Medical History: Reports: Hx COPD - not on home o2, Hx Pneumonia Denies: Hx Asthma Neurological Medical History: Denies: Hx Seizures Endocrine Medical History: Denies: Hx Diabetes Mellitus Type 1, Hx Diabetes Mellitus Type 2, Hx Hyperthyroidism, Hx Hypothyroidism Renal/ Medical History: Reports: Hx Kidney Stones - 1983. Denies: Hx Peritoneal Dialysis GI Medical History: Denies: Hx Cirrhosis, Hx Crohn's Disease, Hx Hepatitis, Hx Ulcerative Colitis Musculoskeletal Medical History: Denies Hx Arthritis, Denies Hx Gout Skin Medical History: Denies Hx Eczema, Denies Hx Psoriasis Psychiatric Medical History: Denies: Hx Depression Infectious Medical History: Denies: Hx Hepatitis Past Surgical History: Reports: Hx Cardiac Catheterization - stent x2, Hx Cardiac Surgery - pacemaker, Hx Coronary Stent, Hx Pacemaker - Immunizations Immunizations up to date: Yes Hx Diphtheria, Pertussis, Tetanus Vaccination: Yes Hx Pneumococcal Vaccination: 06/05/14 Review of Systems - Review of Systems Constitutional: See HPI, Chills, Fever EENT: No symptoms reported Cardiovascular: See HPI, Chest pain, Syncope Respiratory: See HPI, Cough, Sputum Gastrointestinal: See HPI, Diarrhea, Vomiting Genitourinary: No symptoms reported Male Genitourinary: No symptoms reported Musculoskeletal: No symptoms reported Skin: No symptoms reported Hematologic/Lymphatic: No symptoms reported Neurological/Psychological: No symptoms reported -: Yes All other systems reviewed and negative Physical Exam - Vital signs Vitals: Resp Pulse Ox 13 100 11/10/19 13:50 11/10/19 13:50 - Notes Notes: Physical Exam: General: Alert, appears uncomfortable. HEENT: Normocephalic. Atraumatic. PERRL. Extraocular movements intact. Oropharynx clear. Neck: Supple. Non-tender. Respiratory: Mild respiratory distress. Rhonchi bilaterally with a very harsh sounding cough. Cardiovascular: Regular rate and rhythm. Abdominal: Normal Inspection. Non-tender. No distension. Normal Bowel Sounds. Back: No gross abnormalities. Extremities: Moves all four extremities. Upper extremities: Normal inspection. Normal ROM. Lower extremities: Normal inspection. No edema. Normal ROM. Neurological: Normal cognition. AAOx4. Normal speech. Psychological: Normal affect. Normal Mood. Skin: Warm. Dry. Normal color. Course - Re-evaluation Re-evalutation: 11/10/19 19:52 Patient is hemodynamically stable resting comfortable not showing any signs of distress at the moment. Patient has reproducible chest wall pain from coughing episodes in the past several days. Patient pacemaker was interrogated and the report will be included in patient's chart but does not show that there has been any V. tach or V. fib in the past week. Patient had a 45-minute episode of sinus tachycardia a few days ago. Patient reports that he had passed out 1 day ago and there is no evidence of any arrhythmia in the past 24 48 hrs. to validat e that there was any arrhythmia disturbance to cause him to pass out. - Vital Signs Vital signs: Temp Pulse Resp BP Pulse Ox 98.5 F 14 102/66 97 11/10/19 14:17 11/10/19 19:00 11/10/19 18:02 11/10/19 19:00 - Laboratory Result Diagrams: 11/10/19 13:48 11/10/19 13:48 Laboratory results interpreted by me: 11/10/19 11/10/19 13:48 13:48 MCH 34.2 H Glucose 147 H Creatine Kinase 305 H 11/10/19 19:54 Laboratory interpretation shows that patient has a flat line of her troponin level 0 less than 0.012. No other acute abnormalities noted other than CPK elevated at 305. - Diagnostic Test Radiology reviewed: Image reviewed, Reports reviewed Radiology results interpreted by me: 11/10/19 19:55 CT of head did not disclose any acute stroke or any trauma. Patient has had a syncopal episode per history 1 day ago. Chest x-ray shows pacemaker/defibrillator in place, and no acute infiltrates or any other acute process of lung markings. - EKG Interpretation by Me Additional EKG results interpreted by me: 11/10/19 19:56 Twelve-lead EKG done today at 1334 shows a ventricular paced complexes with a left bundle branch block. This pattern is not new and this has been present since 2015 episodically. Discharge - Discharge Clinical Impression: Chest pain, Acute chest wall pain, Syncope and collapse, Fall, Tobacco use disorder, severe, dependence, Acute bronchitis, Left bundle branch block (LBBB) determined by electrocardiography Condition: Good Disposition: HOME, SELF-CARE Instructions: Chest Wall Pain ([facility]) Additional Instructions: Bronchitis You have acute bronchitis. This disease is an infection or inflammation of the air passageways in your lungs. Symptoms usually include cough, low grade fever, shortness of breath, and wheezing. The cough usually persists for a couple of weeks. Most cases of bronchitis get better without antibiotics. We prescribe antibiotics when we believe bacteria are damaging your airways, or if there's high risk the bronchitis will worsen into pneumonia. Increase your fluid intake. A cool mist humidifier may make your lungs more comfortable. An expectorant (cough medicine that loosens phlegm) can help. If you smoke, STOP!!! Recovery from bronchitis can be somewhat slow, but you should see improvement within a day or two. Repeated episodes of bronchitis may result in lung damage -- for example, chronic bronchitis, recurrent pneumonias, or emphysema. Call the doctor if you develop increasing fever, shortness of breath, chest pain, bloody sputum, or otherwise worsen. If you have not improved at all after several days, contact the physician. Chest Wall Pain Your chest pain has been diagnosed as coming from the chest wall. This is often caused by straining the muscles or joints in the chest during physical activity, direct trauma, coughing, or vigorous vomiting. Persons with arthritis are especially prone to this type of pain, due to inflammation of the cartilage joints near the breast bone. Occasionally, no cause can be found. Rest from strenuous physical activity. This kind of chest pain is usually made worse by movement of the chest. Depending on the symptoms, we may prescribe medicine for pain, muscle relaxation, and antiinflammatory effects. If the pain is new, and seems to be due to muscle strain, cold packs can help. Otherwise, apply gentle warmth to the painful area for 15 minutes every hour or two. You should contact the doctor immediately if things change. Further evaluation is needed if you develop a fever or cough, if the nature of the pain changes, or if you become short of breath. Prescriptions: Amoxicillin 1 tab PO TID #30 tab Guaifenesin/Dextromethorphan [Mucinex Dm ER 600-30 mg Tablet] 1 each PO BID 10 Days #20 tab.er.12h Forms: Smoking Cessation Education Referrals: SKYLER MONAHAN FNP-C [Primary Care Provider] - Follow up as needed I personally performed the services described in the documentation, reviewed and edited the documentation which was dictated to the scribe in my presence, and it accurately records my words and actions.
== END 2019-11-10 20:14 | disposition home or self-care (01) ==
LOC: ER 13:26
DX: R07.9 Chest pain, unspecified (principal); R07.89 Other chest pain; R55 Syncope and collapse; I44.7 Left bundle-branch block, unspecified; Z95.810 Presence of automatic (implantable) cardiac defibrillator; F17.210 Nicotine dependence, cigarettes, uncomplicated; I50.9 Heart failure, unspecified; I25.2 Old myocardial infarction; E78.00 Pure hypercholesterolemia, unspecified; J44.9 Chronic obstructive pulmonary disease, unspecified; Z87.442 Personal history of urinary calculi; Z79.02 Long term (current) use of antithrombotics/antiplatelets
CPT/HCPCS: 93005; 99285; 96375; 96365; 96366; 36415; 87040; 82553; 82550; 85025; 80053; 84484; 71046; 70450; 93010; J1885; J3490; C9113; J7030; J0696

== ENCOUNTER 2020-02-20 17:56 | Emergency (ER) | payer MEDICAID ==
[2020-02-20 18:58] LABS: ABSOLUTE LYMPHOCYTES (AUTO) 1.4 10^3/uL (0.5-4.7); ABSOLUTE MONOCYTES (AUTO) 0.6 10^3/uL (0.1-1.4); ABSOLUTE NEUT (AUTO) 4.6 10^3/uL (1.7-8.2); BASOPHILS % (AUTO) 0.4 % (0-2); EOSINOPHILS % (AUTO) 0.6 % (0-6); HEMATOCRIT 50.2 % (37.9-51.0); HEMOGLOBIN 16.9 g/dL (13.5-17.0); LYMPHOCYTES % (AUTO) 20.9 % (13-45); MEAN CORPUSCULAR HEMOGLOBIN 33.7 pg (27.0-33.4); MEAN CORPUSCULAR HGB CONC 33.6 g/dL (32.0-36.0); MEAN CORPUSCULAR VOLUME 101 fl (80-97); MONOCYTES % (AUTO) 8.8 % (3-13); PLATELET COUNT 220 10^3/uL (150-450); RED CELL DISTRIBUTION WIDTH 13.5 % (11.5-14.0); SEGMENTED NEUTROPHILS % (AUTO) 69.3 % (42-78); TOTAL CELLS COUNTED % (AUTO) 100 %; WHITE BLOOD COUNT 6.7 10^3/uL (4.0-10.5)
[2020-02-20 19:17] LABS: ALBUMIN 4.2 g/dL (3.5-5.0); ALKALINE PHOSPHATASE 47 U/L (38-126); ASPARTATE AMINO TRANSFERASE 30 U/L (17-59); BILIRUBIN,TOTAL 0.8 mg/dL (0.2-1.3); BLOOD UREA NITROGEN 10 mg/dL (7-20); CALCIUM 9.6 mg/dL (8.4-10.2); GLUCOSE 110 mg/dL (75-110); POTASSIUM 5.1 mmol/L (3.6-5.0); TOTAL PROTEIN 7.1 g/dL (6.3-8.2)
[2020-02-20 19:24] LABS: CARBON DIOXIDE 29 mmol/L (22-30); CHLORIDE 104 mmol/L (98-107)
[2020-02-20 19:28] LABS: ANION GAP 5 (5-19)
[2020-02-20] MEDS ORDERED: NORMAL SALINE 1000 ML 1,000 ML IV ONE (22:47)
[2020-02-20] MEDS ORDERED: IPRATROPIUM/ALBUTEROL 0.5-2.5 MG/3 ML AMPUL NEB ONE (22:47)
[2020-02-20] MEDS ORDERED: HYDROCODONE/ACETAMINOPHEN 5-325 MG TABLET PO ONE (22:48)
[2020-02-20] MEDS ORDERED: ONDANSETRON HCL INJ/PF 4 MG/2 ML SDV IV ONE (22:48)
--- NOTE | 2020-02-20 22:51 | ER Document Report ---
ED General - General Chief Complaint: Abdominal Cramping Stated Complaint: SHORTNESS OF BREATH FEVER Time Seen by Provider: 02/20/20 22:36 Primary Care Provider: [facility] [Provider Group] - Follow up as needed SKYLER MONAHAN FNP-C [Primary Care Provider] - Follow up in 3-5 days Notes: Patient is a 59-year-old male that comes emergency department multiple complaints. First complaint is that when he eats he gets stomach pain, nausea, and vomiting. He did this twice over the past day. Second complaint is intermittent sharp pain in his lower abdomen with what feels like "bulging" and he is concerned he has a hernia. He still able to move his bowels, he denies hernia history of abdominal surgery. His third complaint is a worsening productive cough and wheezing since yesterday. He denies chest pain unless he is coughing. Patient has COPD and continues to smoke. He also has a history of alcohol abuse, OH with stents, AICD, cocaine abuse. He states he was seen at [facility] on 02/09/[address] scan, was told he has gastritis and started on omeprazole. TRAVEL OUTSIDE OF THE [place] IN LAST 30 DAYS: No - Related Data Allergies/Adverse Reactions: No Known Allergies Allergy (Verified 02/03/19 00:02) Past Medical History - General Information source: Patient - Social History Smoking Status: Current Some Day Smoker Smoking Education Provided: Yes - <3 min Frequency of alcohol use: None Drug Abuse: None Lives with: Family Family History: Reviewed & Not Pertinent Patient has homicidal ideation: No - Past Medical History Cardiac Medical History: Reports: Hx Congestive Heart Failure - Left ventricular ejection fraction 40 to 45% in 2013, Hx Coronary Artery Disease, Hx Heart Attack, Hx Hypercholesterolemia, Hx Hypertension Denies: Hx Atrial Fibrillation Pulmonary Medical History: Reports: Hx COPD - not on home o2, Hx Pneumonia Denies: Hx Asthma Neurological Medical History: Denies: Hx Seizures Endocrine Medical History: Denies: Hx Diabetes Mellitus Type 1, Hx Diabetes Mellitus Type 2, Hx Hyperthyroidism, Hx Hypothyroidism Renal/ Medical History: Reports: Hx Kidney Stones - 1983. Denies: Hx Peritoneal Dialysis GI Medical History: Denies: Hx Cirrhosis, Hx Crohn's Disease, Hx Hepatitis, Hx Ulcerative Colitis Musculoskeletal Medical History: Denies Hx Arthritis, Denies Hx Gout Skin Medical History: Denies Hx Eczema, Denies Hx Psoriasis Psychiatric Medical History: Denies: Hx Depression Infectious Medical History: Denies: Hx Hepatitis Past Surgical History: Reports: Hx Cardiac Catheterization - stent x2, Hx Cardiac Surgery - pacemaker, Hx Coronary Stent, Hx Pacemaker - Immunizations Immunizations up to date: Yes Hx Diphtheria, Pertussis, Tetanus Vaccination: Yes Hx Pneumococcal Vaccination: 06/05/14 Review of Systems - Review of Systems Constitutional: See HPI EENT: No symptoms reported Cardiovascular: No symptoms reported Respiratory: See HPI Gastrointestinal: See HPI Genitourinary: No symptoms reported Male Genitourinary: No symptoms reported Musculoskeletal: No symptoms reported Skin: No symptoms reported Hematologic/Lymphatic: No symptoms reported Neurological/Psychological: No symptoms reported Physical Exam - Vital signs Vitals: Temp Pulse Resp BP Pulse Ox 98.2 F 65 18 160/88 H 98 02/20/20 18:35 02/20/20 18:35 02/20/20 18:35 02/20/20 18:35 02/20/20 18:35 - Notes Notes: GENERAL: Alert and well-appearing but restless HEAD: Normocephalic, atraumatic. EYES: Pupils equal, round, and reactive to light. Extraocular movements intact. ENT: Oral mucosa moist, tongue midline. Oropharynx unremarkable. Airway patent. NECK: Full range of motion. Supple. Trachea midline. No lymphadenopathy. LUNGS: Frequent cough, expiratory wheezes, however good lung sounds are still heard, no tachypnea or respiratory distress. HEART: Regular rate and rhythm. No murmur ABDOMEN: There is no noted tenderness in the abdomen, the right inguinal area appears to have a small hernia, this is very questionable, area is soft and appears reducible. No erythema or swelling, no guarding. Bowel sounds present. GENITOURINARY: No swelling, tenderness, or concerning findings noted EXTREMITIES: Moves all 4 extremities spontaneously. No edema, normal radial and dorsalis pedis pulses bilaterally. No cyanosis. BACK: no cervical, thoracic, lumbar midline tenderness. No saddle anesthesia, normal distal neurovascular exam. Moves all extremities in full range of motion. NEUROLOGICAL: Alert and oriented x3. Normal speech. Cranial nerves II through XII grossly intact. Strength 5/5 in all extremities. PSYCH: Restless and irritable SKIN: Warm, dry, normal turgor. No rashes or lesions noted. Course - Re-evaluation Re-evalutation: Initially patient with expiratory wheezes on exam, coughing, generalized abdominal pain, questionable right inguinal hernia, and he was restless and irritable. However after medications including DuoNeb, [place], IV fluids, steroids on reevaluation patient is calm, smiling, cooperative. Ultrasound does show right inguinal hernia but no incarcerated bowel. There is no evidence of incarcerated hernia on exam and the area is easily reducible without pain. Expiratory wheezes resolved, cough resolved, patient is not hypoxic or febrile. CBC, chemistry unremarkable, troponin negative despite multiple days of sympto ms, lipase only borderline elevated with patient in the setting of ongoing gastritis from frequent alcohol use. Overall picture is consistent with hernia without incarceration, COPD exacerbation. Urine also shows infection. Patient admits to having prostate difficulties, denies history of kidney stones, has no flank pain, presentation is not suggestive of kidney stone, low suspicion of infected ureterolithiasis. Provided with antibiotics, culture placed. After discussion patient was given dexamethasone instead of oral steroids because of his history of gastritis. Placed on antibiotics at home. Discussed follow-up and return precautions. Patient states appreciation and agreement. Patient stable and well-appearing at time of discharge. - Vital Signs Vital signs: Temp Pulse Resp BP Pulse Ox 97.7 F 64 16 168/99 H 98 02/21/20 04:21 02/21/20 04:21 02/21/20 04:21 02/21/20 04:21 02/21/20 04:21 - Laboratory Result Diagrams: 02/20/20 18:45 02/20/20 18:45 Laboratory results interpreted by me: 02/20/20 02/20/20 02/20/20 18:45 18:45 18:45 MCV 101 H MCH 33.7 H Potassium 5.1 H Lipase 487.4 H Urine Ketones Urine Blood Urine Nitrite Ur Leukocyte Esterase 02/21/20 00:35 MCV MCH Potassium Lipase Urine Ketones TRACE H Urine Blood SMALL H Urine Nitrite POSITIVE H Ur Leukocyte Esterase LARGE H Discharge - Discharge Clinical Impression: Wheezing, Cough Abdominal pain Qualifiers: Abdominal location: generalized Qualified Code(s): R10.84 - Generalized abdominal pain Vomiting Qualifiers: Vomiting type: unspecified Vomiting Intractability: non-intractable Nausea presence: unspecified Qualified Code(s): R11.10 - Vomiting, unspecified Condition: Stable Disposition: HOME, SELF-CARE Additional Instructions: Your work-up shows a urinary tract infection, you also have a right-sided hernia called an inguinal hernia. I recommend you take the antibiotics as prescribed to completion. Follow-up with the surgical clinic and/or your primary care in regards to additional treatment for the hernia. You have been treated with steroids here for the next several days to help reduce your wheezing and coughing. Stop smoking. Return if you worsen including spiking fever, severe worsening swelling or pain in the abdomen, uncontrolled vomiting, or any other concerning or worsening symptoms. Prescriptions: Cephalexin Monohydrate [Keflex 500 mg Capsule] 500 mg PO QID #28 capsule Referrals: SKYLER MONAHAN FNP-C [Primary Care Provider] - Follow up in 3-5 days [facility] [Provider Group] - Follow up as needed
[2020-02-20 23:09] LABS: ALCOHOL < 10 mg/dL (NONE DETECTED)
--- NOTE | 2020-02-20 23:40 | RADIOLOGY REPORT (SQ) ---
EXAM DESCRIPTION: X-RAY CHEST- One View CLINICAL HISTORY: Productive cough COMPARISON: November 10, 2019 TECHNIQUE: Single view of the chest. FINDINGS: There are no discrete air space infiltrates, pneumothoraces or pleural effusions. The pulmonary vascularity is normal. The cardiomediastinal silhouette is normal in size. Left chest wall cardiac pacer device is again noted. Osseous structures are stable in appearance. IMPRESSION: There are no acute lung parenchymal findings.
--- NOTE | 2020-02-21 00:48 | RADIOLOGY REPORT (SQ) ---
EXAM DESCRIPTION: Limited abdominal assessment for abdominal wall hernias CLINICAL HISTORY: 59 years Male, lower abd pain; inguinal hernias? COMPARISON: None. TECHNIQUE: Using a high-frequency linear array transducer the inguinal region was evaluated bilaterally at rest and with Valsalva. FINDINGS: In the right inguinal region there is a focal fascial defect which measures 2 cm. With Valsalva omentum is seen herniating. The left inguinal region is unremarkable and there is no hernia defect. IMPRESSION: Right inguinal hernia defect containing omentum.
[2020-02-21 00:56] LABS: APPEARANCE,URINE SLIGHTLY-CLOUDY; BILIRUBIN,URINE NEGATIVE (NEGATIVE); COLOR,URINE YELLOW; GLUCOSE, URINE NEGATIVE (NEGATIVE); KETONES,URINE TRACE mg/dL (NEGATIVE); LEUKOCYTE ESTERASE,URINE LARGE (NEGATIVE); NITRITE,URINE POSITIVE (NEGATIVE); PROTEIN,URINE NEGATIVE (NEGATIVE); URINE SPECIFIC GRAVITY 1.015; UROBILINOGEN,URINE NEGATIVE mg/dL (<2.0)
[2020-02-21 01:07] LABS: URINE AMPHETAMINES SCREEN NEGATIVE; URINE BARBITURATES SCREEN NEGATIVE; URINE BENZODIAZEPINES SCREEN NEGATIVE; URINE COCAINE SCREEN NEGATIVE; URINE METHADONE SCREEN NEGATIVE; URINE PHENCYCLIDINE SCREEN NEGATIVE
[2020-02-21 01:09] LABS: URINE MARIJUANA (THC) SCREEN UNCONFIRMED POSITIVE
[2020-02-21] MEDS ORDERED: CEFTRIAXONE 1 GM/D5W RTU 1 GM/50 ML RTUPB IV ONE (01:23)
[2020-02-21] MEDS ORDERED: HYDROCODONE/ACETAMINOPHEN 5-325 MG (6 TAB/ER DISP) PO PRN (01:32)
[2020-02-21] MEDS ORDERED: DEXAMETHASONE SOD PHOS INJ 10 MG/1 ML VIAL IV ONE (01:33)
[2020-02-21 04:22] VITALS: BP 168/99
--- NOTE | 2020-02-21 07:44 | EKG REPORT ---
SEVERITY:- ABNORMAL ECG - ATRIAL-VENTRICULAR DUAL-PACED COMPLEXES : Confirmed by: Kumar Bunn MD 21-Feb-2020 07:44:19
== END 2020-02-21 03:00 | disposition home or self-care (01) ==
LOC: ER 17:56
DX: R10.84 Generalized abdominal pain (principal); R11.10 Vomiting, unspecified; R05 Cough; R06.2 Wheezing; R06.02 Shortness of breath; R50.9 Fever, unspecified; R11.2 Nausea with vomiting, unspecified; R10.30 Lower abdominal pain, unspecified; J44.9 Chronic obstructive pulmonary disease, unspecified; F17.200 Nicotine dependence, unspecified, uncomplicated; I50.9 Heart failure, unspecified; I25.10 Atherosclerotic heart disease of native coronary artery without angina pectoris; I11.0 Hypertensive heart disease with heart failure
CPT/HCPCS: 93005; 99406; 94640; 99285; 96361; 96375; 96365; 36415; 80307 ×2; 83690; 85025; 80053; 81001; 84484; 71045; 76705; 93010; J2405; J7030; J0696; J1100; J7620; 87086; 87088

== ENCOUNTER 2020-05-08 09:08 | Day surgery (SDC) | payer MEDICAID ==
[2020-05-05 11:38] LABS: ABSOLUTE LYMPHOCYTES (AUTO) 1.5 10^3/uL (0.5-4.7); ABSOLUTE MONOCYTES (AUTO) 0.5 10^3/uL (0.1-1.4); ABSOLUTE NEUT (AUTO) 4.5 10^3/uL (1.7-8.2); BASOPHILS % (AUTO) 0.3 % (0-2); EOSINOPHILS % (AUTO) 0.2 % (0-6); HEMOGLOBIN 17.6 g/dL (13.5-17.0); LYMPHOCYTES % (AUTO) 22.5 % (13-45); MEAN CORPUSCULAR HEMOGLOBIN 33.9 pg (27.0-33.4); MEAN CORPUSCULAR HGB CONC 34.5 g/dL (32.0-36.0); MEAN CORPUSCULAR VOLUME 98 fl (80-97); MONOCYTES % (AUTO) 7.4 % (3-13); PLATELET COUNT 227 10^3/uL (150-450); RED BLOOD COUNT 5.19 10^6/uL (4.35-5.55); RED CELL DISTRIBUTION WIDTH 13.1 % (11.5-14.0); SEGMENTED NEUTROPHILS % (AUTO) 69.6 % (42-78); TOTAL CELLS COUNTED % (AUTO) 100 %; WHITE BLOOD COUNT 6.5 10^3/uL (4.0-10.5)
[2020-05-05 11:54] LABS: ANION GAP 7 (5-19); BLOOD UREA NITROGEN 20 mg/dL (7-20); CALCIUM 9.4 mg/dL (8.4-10.2); CARBON DIOXIDE 30 mmol/L (22-30); CHLORIDE 101 mmol/L (98-107); GLUCOSE 101 mg/dL (75-110)
--- NOTE | 2020-05-05 12:25 | EKG REPORT ---
SEVERITY:- ABNORMAL ECG - ATRIAL-VENTRICULAR DUAL-PACED RHYTHM : Confirmed by: Kumar Bunn MD 05-May-2020 12:24:32
--- NOTE | 2020-05-05 12:35 | RADIOLOGY REPORT (SQ) ---
EXAM DESCRIPTION: CHEST PA/LATERAL IMAGES COMPLETED DATE/TIME: 05/05/2020 11:17 am REASON FOR STUDY: PRE-OP COMPARISON: 02/20/2020 EXAM PARAMETERS: NUMBER OF VIEWS: two views TECHNIQUE: Digital Frontal and Lateral radiographic views of the chest acquired. RADIATION DOSE: NA LIMITATIONS: none FINDINGS: LUNGS AND PLEURA: No opacities, masses or pneumothorax. No pleural effusion. MEDIASTINUM AND HILAR STRUCTURES: No masses or contour abnormalities. HEART AND VASCULAR STRUCTURES: Heart normal size. No evidence for failure. BONES: No acute findings. HARDWARE: Pacemaker. OTHER: No other significant finding. IMPRESSION: NO SIGNIFICANT RADIOGRAPHIC FINDING IN THE CHEST. TECHNICAL DOCUMENTATION: JOB ID: [id number] 2010 [employer]- All Rights Reserved Reading location - IP/workstation name: [email or web address]
[~2020-05-08 09:08] MED LIST: LACTATED RINGERS 1000 ML IV PRN; LIDOCAINE 0.5% INJ-PF (5 MG/ML) 50 ML SDV SUBCUT PRN
[2020-05-08] MEDS ORDERED: MIDAZOLAM 2 MG/2 ML INJ ONE ×2 (10:28→11:09)
[2020-05-08] MEDS ORDERED: CEFAZOLIN 1 GM/D5W RTU 0 GM/0 ML RTUPB IV ONE (10:28)
[2020-05-08] MEDS ORDERED: MIDAZOLAM 2 MG/2 ML INJ IV ONE (10:45)
[2020-05-08] MEDS ORDERED: CEFAZOLIN 2 GM/D5W RTU 2 GM/50 ML RTUPB IV ONE (11:05)
[2020-05-08] MEDS ORDERED: BUPIVACAINE INJ/PF LIPOSOME/PF 266 MG/20 ML SDV ONE (11:08)
[2020-05-08] MEDS ORDERED: HYDROMORPHONE HCL INJ/PF 2 MG/ML AMPULE ONE (11:09)
[2020-05-08] MEDS ORDERED: EPHEDRINE SULFATE INJ 50 MG/1 ML AMPULE ONE (11:09)
[2020-05-08] MEDS ORDERED: FENTANYL CITRATE INJ/PF 100 MCG/2 ML AMPUL ONE ×2 (11:09→12:38)
[2020-05-08] MEDS ORDERED: PROPOFOL INJ 200 MG/20 ML VIAL IV ONE (11:09)
[2020-05-08] MEDS ORDERED: ROPIVACAINE HCL 0.5% INJ/PF (5 MG/1 ML) 30 ML SDV ONE (11:19)
[2020-05-08] MEDS ORDERED: CEFAZOLIN 2 GM/D5W RTU 2 GM/50 ML RTUPB IV PRN (11:28)
[2020-05-08] MEDS ORDERED: OXYCODONE-ACETAMINOPHEN 5-325 MG TABLET PO PRN ×2 (12:04)
[2020-05-08] MEDS ORDERED: FENTANYL CITRATE INJ/PF 100 MCG/2 ML AMPUL IV PRN ×3 (12:04)
[2020-05-08] MEDS ORDERED: DIPHENHYDRAMINE HCL 50 MG/ML VIAL IV PRN (12:04)
[2020-05-08] MEDS ORDERED: ONDANSETRON HCL INJ/PF 4 MG/2 ML SDV IV PRN (12:04)
[2020-05-08] MEDS ORDERED: PROMETHAZINE HCL INJ 25 MG/1 ML VIAL IV PRN ×2 (12:04)
[2020-05-08] MEDS ORDERED: MEPERIDINE HCL/PF INJ 25 MG/1 ML DISP.SYRIN IV PRN (12:04)
--- NOTE | 2020-05-08 12:35 | Operative Report ---
Nonrecallable Operative Report DATE OF SURGERY: 05/08/20 PREOPERATIVE DIAGNOSIS: umbilical hernia POSTOPERATIVE DIAGNOSIS: umbilical hernia OPERATION: umbilical hernia repair SURGEON: [id number] NURSE: CRISTIANA CARLTON ANESTHESIA: GA TISSUE REMOVED OR ALTERED: none COMPLICATIONS: none ESTIMATED BLOOD LOSS: 10cc. INTRAOPERATIVE FINDINGS: see note PROCEDURE: Patient was brought to the operating awake alert stable condition placed on the upper table supine position induced under general anesthesia intubated. After appropriate timeout site verification the procedure commenced. A supraumbilical incision was made with a 15 blade dissection was carried down through subcutaneous tissue with Bovie cautery we immediately identified the hernia sac which was supraumbilical and not involving the umbilical stalk. The hernia sac and its contents were dissected back to the neck of the hernia which was approximately 1 cm defect at the midline of the rectus fascia just above the umbilical stalk. We excised the hernia sac as well as the incarcerated prep eritoneal fat within the hernia sac with Bovie cautery making sure that the stay side remained hemostatic. We then closed the supraumbilical hernia defect with interrupted placed #2 Vicryl sutures placed in a Smead Perez fashion. It was 1 cm in diameter and the surrounding edges of the fascia were were healthy and held sutures well. Upon closure of the defect hemostasis was obtained with Bovie cautery and the skin edges reapproximated with intra-cuticular 4-0 Monocryl. Steri-Strips completed the procedure. Sterile dressing was applied the termination of procedure. Estimated blood loss was less than 10 cc sponge needle counts correct x2 patient was then awakened in the operative extubated transferred recovery stable condition no complications. Of note DUSTY Quintero was present for the entire procedure for help with wound retraction wound closure. Addendum; should be noted that during intubation there was a questionable mass found on the left epiglottis there was a seen by the anesthesiologist and viewed by me. Therefore I will send a referral for evaluation by ENT for this patient.
--- NOTE | 2020-05-08 12:39 | Discharge Summary ---
Discharge Summary (SDC) - Discharge Final Diagnosis: umbilical hernia Date of Surgery: 05/08/20 Discharge Date: 05/08/20 Condition: Good Treatment or Instructions: no lifitng more than 10lbs. for 6 wks. Prescriptions: Oxycodone HCl/Acetaminophen [Percocet 10-325 Mg Tablet] 1 each PO Q6HP PRN #10 tablet PRN Reason: Referrals: SKYLER MONAHAN FNP-C [Primary Care Provider] - Discharge Diet: As Tolerated Discharge Activity: Activity As Tolerated, No Lifting Over 10 Pounds, Non- Ambulatory Child Activities Provided by Home Health Agency: ADL's Report the Following to Your Physician Immediately: Vomiting, Increase in Pain
[2020-05-08] MEDS ORDERED: OXYCODONE-ACETAMINOPHEN 5-325 MG TABLET ONE (13:08)
[2020-05-08] MEDS ORDERED: OXYCODONE-ACETAMINOPHEN 5-325 MG TABLET PO ONE (14:30)
[2020-05-08] MEDS ORDERED: DEXAMETHASONE SOD PHOSPHATE INJ 4 MG/1 ML VIAL ONE (14:57)
[2020-05-08] MEDS ORDERED: LIDOCAINE 2% INJ-PF (20 MG/ML) 2 ML AMPUL ONE (14:57)
[2020-05-08] MEDS ORDERED: ONDANSETRON HCL INJ/PF 4 MG/2 ML SDV ONE (14:57)
[2020-05-08] MEDS ORDERED: NEOSTIGMINE METHYLSULFATE 10 MG/10 ML VIAL ONE (14:57)
[2020-05-08] MEDS ORDERED: ROCURONIUM BROMIDE INJ 50 MG/5 ML VIAL IV ONE (14:57)
[2020-05-08] MEDS ORDERED: GLYCOPYRROLATE 1 MG/5 ML VIAL ONE (14:57)
[2020-05-08] MEDS ORDERED: METOCLOPRAMIDE HCL INJ/PF 10 MG/2 ML SDV ONE (14:57)
[2020-05-08 16:52] VITALS: BP 152/95
== END 2020-05-08 14:25 | disposition home or self-care (01) ==
LOC: OROUT 09:08
PROVIDERS: ATTEND Surgery
DX: K42.9 Umbilical hernia without obstruction or gangrene (principal); I25.10 Atherosclerotic heart disease of native coronary artery without angina pectoris; I25.2 Old myocardial infarction; I10 Essential (primary) hypertension; E78.00 Pure hypercholesterolemia, unspecified; K21.9 Gastro-esophageal reflux disease without esophagitis; J44.9 Chronic obstructive pulmonary disease, unspecified; F17.210 Nicotine dependence, cigarettes, uncomplicated; G47.33 Obstructive sleep apnea (adult) (pediatric); Z03.818 Encounter for observation for suspected exposure to other biological agents ruled out
CPT/HCPCS: 49585; 93005; 36415 ×2; 84132; 85025; 87635; 80048; 71046; 93010; 76942; 64450; 00750; J2795; J2250; J3490 ×3; J1100; J3010; J2765; J2710; J1170; J2405; J2704; J0690; C9290; C9803; 750

== ENCOUNTER → 2020-06-04 | Outpatient (CLI) | payer MEDICAID ==
--- NOTE | 2020-06-04 15:58 | RADIOLOGY REPORT (SQ) ---
EXAM DESCRIPTION: CT SOFT TISSUE NECK WITH IMAGES COMPLETED DATE/TIME: 06/04/2020 12:53 pm REASON FOR STUDY: HYPOPHARYNGEAL CYST J39.2 OTHER DISEASES OF PHARYNX COMPARISON: None. TECHNIQUE: Post IV contrasted scanning from skull base through lung apices with review of bone, soft tissue and lung windows. Reconstructed coronal and sagittal MPR images reviewed. All images stored on PACS. All CT scanners at this facility use dose modulation, iterative reconstruction, and/or weight based d osing when appropriate to reduce radiation dose to as low as reasonably achievable (ALARA). [facility]: Dose Right [facility]: CareDose [facility]: Dose Right [facility]: Teradose 4D [facility]: Clickability CONTRAST TYPE AND DOSE: contrast/concentration: Isovue 350.00 mmol/ml; Total Contrast Delivered: 75. 0 ml; Total Saline Delivered: 44.9 ml RENAL FUNCTION: GFR > 60. RADIATION DOSE: . LIMITATIONS: None. FINDINGS: SKULL BASE: Intact. MAJOR SALIVARY GLANDS: No solid or cystic masses. No inflammatory changes. LYMPHADENOPATHY: No adenopathy. MUCOSAL MASSES OR ASYMMETRY: There is obliteration of the nasopharyngeal lumen at the level of the po sterior soft palate just superior to oropharynx. A discrete mass is not identified. LARYNX/CORDS: No abnormal findings. VASCULAR STRUCTURES: The major vessels are patent. LUNG APICES: Clear. BONES: Intact. THYROID: Normal size. No masses. PARANASAL SINUSES: Clear. OTHER: No other significant finding. IMPRESSION: Obliteration of the inferior nasopharyngeal lumen without discrete mass. No adenopathy. TECHNICAL DOCUMENTATION: JOB ID: [id number] Quality ID # [id number]: Final reports with documentation of one or more dose reduction techniques (e.g., Au tomated exposure control, adjustment of the mA and/or kV according to patient size, use of iterative reconstruction technique) 2010 [employer]- All Rights Reserved Reading location - IP/workstation name: [email or web address]
== END ==
LOC: RAD 12:35
PROVIDERS: ATTEND Otolaryngology
DX: J39.2 Other diseases of pharynx (principal)
CPT/HCPCS: 70491